=== PATIENT | female | born 1970 | race Caucasian/White ===

== ENCOUNTER 2019-08-16 19:01 | Emergency (ER) | payer SELFPAY ==
[~2019-08-16] VITALS: Ht 160 cm; Wt 84.9 kg
--- NOTE | 2019-08-16 19:29 | ED General ---
General Chief Complaint: Allergic Reaction Stated Complaint: ALLERGIC REACTION Nursing Triage Note: PT. REPORTED SHE CAME OUT OF THE [facility]EDRO AND HAD HIVES AROUND 1730. SHE DID TAKE A SHOWER. SHE TOOK 2 BENADRYL AT 1730. PT. DOES C/O BEING SOB, HAVING HIVES, ITCHING, AND THROAT TIGHTENING. Nursing Sepsis Screen: No Definite Risk Source of Information: Patient History of Present Illness Date Seen by Provider: Aug 16, 2019 Time Seen by Provider: 19:15 Initial Comments Patient is a 49-year-old female with history of asthma, severe perfume allergies presents with acute onset shortness of breath, wheezing, and diffuse urticaria starting 30 minutes prior to ED arrival. Patient states symptoms began after she had finished working outdoors and was preparing to take a shower. Denies known allergen exposure. Patient used albuterol inhaler and took 50 mg of Benadryl prior to coming to the emergency department. Reports sensation of tongue swelling and a band around her lower neck. Patient with audible dyspnea then and able to speak in complete sentences. Patient arrives by private vehicle. Timing/Duration: 4-6 Hours Severity: Severe Modifying Factors: improves with Medication Associated Systoms: Chest Pain, Shortness of Air Allergies and Home Medications Allergies Coded Allergies: butorphanol (Verified Allergy, Unknown, 08/16/19) cyclobenzaprine (Verified Allergy, Unknown, 08/16/19) levofloxacin (Verified Allergy, Unknown, 08/16/19) meperidine (Verified Allergy, Unknown, 08/16/19) metoclopramide (Verified Allergy, Unknown, 08/16/19) morphine (Verified Allergy, Unknown, 08/16/19) prasugrel (Verified Allergy, Unknown, 08/16/19) tramadol (Verified Allergy, Unknown, 08/16/19) Patient Home Medication List Home Medication List Reviewed: Yes Review of Systems Review of Systems Constitutional: see HPI EENTM: see HPI Cardiovascular: see HPI Gastrointestinal: see HPI Genitourinary: see HPI Musculoskeletal: see HPI Skin: see HPI Psychiatric/Neurological: See HPI Hematologic/Lymphatic: See HPI All Other Systems Reviewed Negative Unless Noted: Yes Past Potcmeg-Vztkzb-Qwhjce Hx Past Med/Social Hx: Reviewed Nursing Past Med/Soc Hx Patient Social History Recent Foreign Travel: No Contact w/Someone Who Travel: No Recent Infectious Disease Expo: No Physical Exam Vital Signs Vital Signs - First Documented 08/16/19 19:02 Temp 36.1 Pulse 26 B/P (MAP) 132/100 (111) Pulse Ox 98 O2 Delivery Room Air Capillary Refill : Less Than 3 Seconds Height, Weight, BMI Height: '" Weight: lbs. oz. kg; 33.00 BMI Method: General Appearance: Moderate Distress (respiratory distress) Eyes: Bilateral Eye Normal Inspection, Bilateral Eye PERRL, Bilateral Eye EOMI HEENT: PERRL/EOMI, Normal ENT Inspection, Other (no appreciated oral or posterior oral pharyngeal swelling) Neck: Full Range of Motion, Non Tender, Supple Respiratory: Accessory Muscle Use (tachypnea, diminished coarse breath sounds bilaterally, speaks in 5-7 word sentences), Decreased Breath Sounds, Respiratory Distress, Wheezing, Other Gastrointestinal: Soft Back: Normal Inspection Extremity: Normal Capillary Refill Neurologic/Psychiatric: Oriented x3 Skin: Other (diffuse urticaria over extremities and torso.) Focused Exam Sepsis Stage: Ruled Out Progress/Results/Core Measures Suspected Sepsis Recent Fever Within 48 Hours: No Infection Criteria Present: None New/Unexplained Altered Menta: No Sepsis Screen: No Definite Risk SIRS Temperature: Pulse: 26 Respiratory Rate: Blood Pressure 132 /100 Mean: 111 Results/Orders My Orders Orders - SHASHANK MTZ Epinephrine (Racemic Epinephrine 2.25 (08/16/19 19:30) Methylprednisolone Sod Succ (Solu-Medrol (08/16/19 19:30) Famotidine Injection (Pepcid Injection) (08/16/19 19:30) Svn Small Volume Nebulizer (08/16/19 19:19) Medications Given in ED Current Medications Medications Dose Ordered Sig/Edy Route Start Time Stop Time Status Last Admin Dose Admin Epinephrine 0.5 ml ONCE ONCE INH 08/16/19 19:30 08/16/19 19:31 DC 08/16/19 19:27 0.5 ML Famotidine 40 mg ONCE ONCE IVP 08/16/19 19:30 08/16/19 19:31 DC 08/16/19 19:27 40 MG Methylprednisolone Sodium Succinate 125 mg ONCE ONCE IVP 08/16/19 19:30 08/16/19 19:31 DC 08/16/19 19:27 125 MG Vital Signs/I&O 08/16/19 19:02 Temp 36.1 Pulse 26 B/P (MAP) 132/100 (111) Pulse Ox 98 O2 Delivery Room Air Capillary Refill : Less Than 3 Seconds Blood Pressure Mean: 111 Departure Communication (Admissions) Patient with allergic reaction with respiratory symptoms 2 to unknown exposure. Steroids and antihistamines and nebulized racemic epinephrine given with significant improvement/resolution of symptoms in the emergency department. No oral pharyngeal swelling, urticaria or chest tightness on reevaluation. Recommendations are continued supportive care, close monitoring and PCP follow- up. Return precautions reviewed. Impression Primary Impression: Urticaria Additional Impression: Allergic reaction Disposition: HOME, SELF-CARE Condition: Improved Departure-Patient Inst. Referrals: NO,LOCAL PHYSICIAN (PCP) Primary Care Physician Patient Instructions: Hives, Anaphylaxis (DC) Add. Discharge Instructions: Please take medications as directed. Use home albuterol inhaler and Benadryl as needed for additional relief. Follow-up with your PCP for reevaluation if symptoms persist. Return to the ED if symptoms worsen or return. All discharge instructions reviewed with patient and/or family. Voiced understanding. Scripts Famotidine (Pepcid) 20 Mg Tablet 20 MG PO BID, #30 TAB Prov: SHASHANK MTZ DO 08/16/19 Prednisone (Prednisone) 20 Mg Tab 40 MG PO DAILY, #6 TAB 0 Refills Prov: SHASHANK MTZ DO 08/16/19 SHASHANK MTZ DO Aug 16, 2019 19:29
[2019-08-16] MEDS ORDERED: RT-epiNEPHrine (RACEMIC) 2.25% 0.5 ML VIAL INH ONE (19:30)
[2019-08-16] MEDS ORDERED: methylPREDNISolone 125 MG (Solu-MEDROL) VIAL IVP ONE (19:30)
[2019-08-16] MEDS ORDERED: FAMOTIDINE 20MG/2ML IV (PEPCID) IVP ONE (19:30)
[2019-08-16] MEDS ORDERED: FAMO-119 PO (20:02)
[2019-08-16] MEDS ORDERED: PRD20T PO (20:02)
[2019-08-16 20:04] VITALS: BP 91/67
== END 2019-08-16 20:06 | disposition home or self-care (01) ==
LOC: ER FS 19:02
DX: L50.9 Urticaria, unspecified (principal); T78.40XA Allergy, unspecified, initial encounter; J45.909 Unspecified asthma, uncomplicated; Z88.1 Allergy status to other antibiotic agents; Z88.5 Allergy status to narcotic agent; Z88.8 Allergy status to other drugs, medicaments and biological substances

== ENCOUNTER 2019-09-16 18:27 | Emergency (ER) | payer SELFPAY ==
[~2019-09-16] VITALS: Ht 160 cm; Wt 84.8 kg
[~2019-09-16 18:27] MED LIST: FAMO-119 PO; PRD20T PO
[2019-09-16] MEDS ORDERED: methylPREDNISolone 125 MG (Solu-MEDROL) VIAL IV STA (18:43)
[2019-09-16] MEDS ORDERED: NS IV 1000 ML 1,000 ML IV STA (18:43)
[2019-09-16] MEDS ORDERED: FAMOTIDINE 20MG/2ML IV (PEPCID) IV STA (18:43)
--- NOTE | 2019-09-16 18:57 | ED General ---
General Chief Complaint: Allergic Reaction Stated Complaint: ALLERGIC REACTION Nursing Triage Note: PT HAS UNKNOWN ALLERGIES AND SHE REPORTS HIVES AFTER BEING OUTSIDE AND HER HANDS FELT LIKE THEY WERE SWELLING AND HER THROAT FELT WEIRD. 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 Nursing Sepsis Screen: No Definite Risk Source of Information: Patient Exam Limitations: No Limitations History of Present Illness Date Seen by Provider: Sep 16, 2019 Time Seen by Provider: 18:38 Initial Comments Here with report of severe allergic reaction. She is apparently standing outside in the past year when she started feeling hives on her legs and hands associated with itching. She went inside and took 50 mg of Benadryl. She waited 10 minutes and that was not helping so she did an EpiPen. She had progression of symptoms and about 15 minutes later she felt like her lips and throat itching. She went ahead and took another EpiPen at that time. First EpiPen was about 5:45 PM with the second EpiPen around 6 PM. Ultimately she presented to the ER afterwards and is feeling quite shaky. Hives have resolved and she has no breathing problems. She came to the ER due to her primary doctor instructions to come if she has to use her EpiPen. Denies current nausea, vomiting, abdominal pain, breathing problems or weakness. She is jittery. Timing/Duration: 1 Hour, Changing Over Time Severity: Moderate, Severe Associated Systoms: No Chest Pain, No Fever/Chills, No Nausea/Vomiting, No Shortness of Air, No Weakness Allergies and Home Medications Allergies Coded Allergies: butorphanol (Verified Allergy, Unknown, 08/16/19) cyclobenzaprine (Verified Allergy, Unknown, 08/16/19) levofloxacin (Verified Allergy, Unknown, 08/16/19) meperidine (Verified Allergy, Unknown, 08/16/19) metoclopramide (Verified Allergy, Unknown, 08/16/19) morphine (Verified Allergy, Unknown, 08/16/19) prasugrel (Verified Allergy, Unknown, 08/16/19) tramadol (Verified Allergy, Unknown, 08/16/19) Home Medications Famotidine 20 Mg Tablet, 20 MG PO BID Prescribed by: SHASHANK MTZ on 08/16/192001 Prednisone 20 Mg Tab, 40 MG PO DAILY Prescribed by: SHASHANK MTZ on 08/16/192001 Patient Home Medication List Home Medication List Reviewed: Yes Review of Systems Review of Systems Constitutional: see HPI; No chills, No fever EENTM: see HPI Respiratory: see HPI, short of breath; No stridor, No wheezing Cardiovascular: No chest pain; palpitations Gastrointestinal: No abdominal pain, No nausea, No vomiting Genitourinary: no symptoms reported Musculoskeletal: no symptoms reported Skin: see HPI, lesions, pruritus, rash All Other Systems Reviewed Negative Unless Noted: Yes Past Jvfwrad-Kldmvd-Romfoo Hx Past Med/Social Hx: Reviewed Nursing Past Med/Soc Hx Patient Social History Alcohol Use: Denies Use Recreational Drug Use: No Smoking Status: Never a Smoker 2nd Hand Smoke Exposure: No Recent Foreign Travel: No Contact w/Someone Who Travel: No Recent Infectious Disease Expo: No Recent Hopitalizations: No Physical Abuse: No Sexual Abuse: No Mistreated: No Fear: No Seasonal Allergies Seasonal Allergies: Yes Past Medical History Surgeries: Yes Coronary Stent, Gallbladder, Hysterectomy Respiratory: Yes Asthma Cardiac: Yes Coronary Artery Disease Neurological: Yes 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 oz. kg; 33.00 BMI Method: General Appearance: No Apparent Distress, WD/WN HEENT: PERRL/EOMI, Pharynx Normal Neck: Non Tender, Supple Respiratory: Lungs Clear, Normal Breath Sounds Cardiovascular: No Murmur, Tachycardia Gastrointestinal: Non Tender, Soft Back: Normal Inspection, No CVA Tenderness, No Vertebral Tenderness Extremity: Normal Range of Motion, Non Tender Neurologic/Psychiatric: Alert, Oriented x3 Skin: Normal Color, Warm/Dry, Other (hives have resolved) Progress/Results/Core Measures Suspected Sepsis Recent Fever Within 48 Hours: No Infection Criteria Present: None New/Unexplained Altered Menta: No Sepsis Screen: No Definite Risk SIRS Temperature: Pulse: 105 Respiratory Rate: 18 Blood Pressure 162 /84 Mean: 110 Results/Orders My Orders Orders - JONNATHAN NOVAK MD Methylprednisolone Sod Succ (Solu-Medrol (09/16/19 18:43) Ns Iv 1000 Ml (Sodium Chloride 0.9%) (09/16/19 18:43) Famotidine Injection (Pepcid Injection) (09/16/19 18:43) Ed Iv/Invasive Line Start (09/16/19 18:43) Vital Signs/I&O 09/16/19 18:30 Temp 36.7 Pulse 105 Resp 18 B/P (MAP) 162/84 (110) Pulse Ox 98 O2 Delivery Room Air Capillary Refill : Less Than 3 Seconds Blood Pressure Mean: 110 POS Progress Note : Progress Note Seen and evaluated. Patient placed on monitor. IV, normal saline 1 L bolus, Pepcid 20 mg IV and Solu-Medrol 125 mg IV ordered. We will need to monitor patient through the epinephrine dosing timeframe. We will likely monitor tell about 10 PM. She remains resolved at this time. Monitor patient. 1933: Patient doing better and heart rate has decreased to 90s. Monitor patient. 2029: Remains improved. Monitor patient. 2121: Heart rate in the 80s. Jitteriness gone. No return of symptoms. Discharged home with return precautions. Patient verbalize understanding instructions and agreement with plan. We will continue prednisone for the next 4 days. She will product picker her EpiPen prescriptions at the clinic tomorrow. Departure Impression Primary Impression: Anaphylaxis Qualified Codes: T78.2XXA - Anaphylactic shock, unspecified, initial encounter Disposition: 01 HOME, SELF-CARE Condition: Improved Departure-Patient Inst. Decision time for Depature: 21:24 Referrals: NO,LOCAL PHYSICIAN (PCP) Primary Care Physician Patient Instructions: Anaphylaxis (DC) Add. Discharge Instructions: All discharge instructions reviewed with patient and/or family. Voiced understanding. You may take [id number] famotidine (Pepcid) 20 mg tablet twice daily for the next 4 days and then as needed. If you ever having onset of allergic or action, take one of the famotidine tablets and 50 mg of Benadryl (diphenhydramine). Carrier this with you at all times. You may continue Benadryl/diphenhydramine 25-50 mg every 6 hours as needed for hives or itching. Only take this if needed. Take other medication as prescribed. Get your prescription for your EpiPen filled tomorrow at the clinic. Return for worse pain, fever, vomiting, weakness, breathing problems, return of symptoms or other concerns as needed. Scripts Prednisone (Prednisone) 20 Mg Tab 40 MG PO DAILY, #8 TAB 0 Refills Prov: JONNATHAN NOVAK MD 09/16/19 JONNATHAN NOVAK MD Sep 16, 2019 18:57 POS
[2019-09-16] MEDS ORDERED: PRD20T PO (21:25)
[2019-09-16 21:34] VITALS: BP 135/76
== END 2019-09-16 21:34 | disposition home or self-care (01) ==
LOC: EDUNIT# 18:27 → ER FS 18:28
DX: T78.2XXA Anaphylactic shock, unspecified, initial encounter (principal); J45.909 Unspecified asthma, uncomplicated; I25.10 Atherosclerotic heart disease of native coronary artery without angina pectoris; G40.909 Epilepsy, unspecified, not intractable, without status epilepticus; Z88.5 Allergy status to narcotic agent; Z88.1 Allergy status to other antibiotic agents; Z88.8 Allergy status to other drugs, medicaments and biological substances; Z95.5 Presence of coronary angioplasty implant and graft; Z90.710 Acquired absence of both cervix and uterus

== ENCOUNTER 2020-01-03 16:47 | Emergency (ER) | payer MEDICAID, OTHER ==
[~2020-01-03] VITALS: Ht 160 cm; Wt 84.3 kg
[2020-01-03] MEDS ORDERED: ASPIRIN 81 MG CHEW (CHILDREN'S ASA) PO ONE (17:00)
--- NOTE | 2020-01-03 17:02 | ED Chest Pain ---
General Chief Complaint: Chest Pain Stated Complaint: CHEST PAINS Source: patient Exam Limitations: no limitations (LICO CAMPA DO) History of Present Illness Date Seen by Provider: Jan 03, 2020 Time Seen by Provider: 16:52 Initial Comments The patient is a pleasant 49-year-old obese female who presents for evaluation of pain between her shoulder blades which started 1 hours ago. She states that she was getting ready to make dinner and not exerting herself at all. She took some nitroglycerin which helped but did not completely resolve her pain. She states that this is typically where she has pain when she is having a cardiac problem. She has not taken any aspirin today because she normally takes aspirin at night. She has 3 coronary artery stents in her LAD which was performed at [facility]. She states that if admitted she would like to be transferred to [place]. She is also having some indigestion and nausea. She is alert and oriented 4, calm, and appears to be in no distress this time. Timing/Duration: 1 hour Severity/Quality: moderate Location: back (between shoulder blades) Radiation: no radiation Activities at Onset: none Prior CP/Workup: cardiac cath, heart attack ASA po TELLER VAULT: No NTG SL TELLER VAULT: Yes Associated Symptoms: heartburn, nausea/vomiting (LICO CAMPA DO) Allergies and Home Medications Allergies Coded Allergies: butorphanol (Verified Allergy, Unknown, 08/16/19) cyclobenzaprine (Verified Allergy, Unknown, 08/16/19) levofloxacin (Verified Allergy, Unknown, 08/16/19) meperidine (Verified Allergy, Unknown, 08/16/19) metoclopramide (Verified Allergy, Unknown, 08/16/19) morphine (Verified Allergy, Unknown, 08/16/19) prasugrel (Verified Allergy, Unknown, 08/16/19) tramadol (Verified Allergy, Unknown, 08/16/19) Home Medications Famotidine 20 Mg Tablet, 20 MG PO BID Prescribed by: SHASHANK SEXTON on 08/16/192001 Prednisone 20 Mg Tab, 40 MG PO DAILY Prescribed by: SHASHANK SEXTON on 08/16/192001 Prednisone 20 Mg Tab, 40 MG PO DAILY Prescribed by: JONNATHAN NOVAK on 09/16/19 3364 Patient Home Medication List Home Medication List Reviewed: Yes (LICO CAMPA DO) Review of Systems Review of Systems Constitutional: no symptoms reported EENTM: No Symptoms Reported Respiratory: No Symptoms Reported Cardiovascular: No Symptoms Reported Gastrointestinal: Nausea Genitourinary: No Symptoms Reported Musculoskeletal: other (pain between shoulder blades) Skin: no symptoms reported Psychiatric/Neurological: No Symptoms Reported Endocrine: No Symptoms Reported Hematologic/Lymphatic: No Symptoms Reported (LICO CAMPA DO) All Other Systems Reviewed Negative Unless Noted: Yes (LICO CAMPA DO) Past Tegecfh-Dofmda-Nlcxlr Hx Past Med/Social Hx: Reviewed Nursing Past Med/Soc Hx (LICO CAMPA DO) Patient Social History 2nd Hand Smoke Exposure: No Recent Foreign Travel: No Contact w/Someone Who Travel: No Recent Hopitalizations: No (LICO CAMPA DO) Seasonal Allergies Seasonal Allergies: Yes (LICO CAMPA DO) Past Medical History Surgeries: Yes Coronary Stent, Gallbladder, Hysterectomy Respiratory: Yes Asthma Cardiac: Yes Coronary Artery Disease 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 oz. kg; 33.00 BMI Method: General Appearance: No Apparent Distress, WD/WN, Obese HEENT: PERRL/EOMI, Pharynx Normal Neck: Full Range of Motion, Non Tender, Supple Respiratory: Chest Non Tender, Lungs Clear, Normal Breath Sounds, No Accessory Muscle Use, No Respiratory Distress Cardiovascular: Regular Rate, Rhythm, No Edema, No Murmur, Normal Peripheral Pulses Gastrointestinal: Normal Bowel Sounds, No Pulsatile Mass, Non Tender, Soft Extremity: Normal Capillary Refill, Normal Inspection, Non Tender Neurologic/Psychiatric: Alert, Oriented x3, No Motor/Sensory Deficits, Normal Mood/Affect Skin: Normal Color, Warm/Dry (LICO CAMPA DO) Progress/Results/Core Measures Results/Orders Lab Results Laboratory Tests Test 01/03/20 16:55 Range/Units White Blood Count 7.6 4.3-11.0 10^3/uL Red Blood Count 5.23 4.35-5.85 10^6/uL Hemoglobin 15.1 11.5-16.0 G/DL Hematocrit 44 35-52 % Mean Corpuscular Volume 84 80-99 FL Mean Corpuscular Hemoglobin 29 25-34 PG Mean Corpuscular Hemoglobin Concent 35 32-36 G/DL Red Cell Distribution Width 12.5 10.0-14.5 % Platelet Count 192 130-400 10^3/uL Mean Platelet Volume 9.1 7.4-10.4 FL Neutrophils (%) (Auto) 59 42-75 % Lymphocytes (%) (Auto) 29 12-44 % Monocytes (%) (Auto) 7 0-12 % Eosinophils (%) (Auto) 4 0-10 % Basophils (%) (Auto) 0 0-10 % Neutrophils # (Auto) 4.5 1.8-7.8 X 10^3 Lymphocytes # (Auto) 2.2 1.0-4.0 X 10^3 Monocytes # (Auto) 0.5 0.0-1.0 X 10^3 Eosinophils # (Auto) 0.3 0.0-0.3 10^3/uL Basophils # (Auto) 0.0 0.0-0.1 10^3/uL D-Dimer 0.59 H 0.00-0.49 UG/ML Sodium Level 139 135-145 MMOL/L Potassium Level 3.5 L 3.6-5.0 MMOL/L Chloride Level 99 98-107 MMOL/L Carbon Dioxide Level 24 21-32 MMOL/L Anion Gap 16 H 5-14 MMOL/L Blood Urea Nitrogen 18 7-18 MG/DL Creatinine 0.76 0.60-1.30 MG/DL Estimat Glomerular Filtration Rate > 60 BUN/Creatinine Ratio 24 Glucose Level 145 H 70-105 MG/DL Calcium Level 9.4 8.5-10.1 MG/DL Corrected Calcium 8.5-10.1 MG/DL Total Bilirubin 0.3 0.1-1.0 MG/DL Aspartate Amino Transf (AST/SGOT) 16 5-34 U/L Alanine Aminotransferase (ALT/SGPT) 24 0-55 U/L Alkaline Phosphatase 174 H 40-136 U/L Troponin I < 0.30 <0.30 NG/ML Pro-B-Type Natriuretic Peptide 10.6 <75.0 PG/ML Total Protein 7.6 6.4-8.2 GM/DL Albumin 4.8 H 3.2-4.5 GM/DL (SHASHANK SEXTON DO) My Orders Orders - SHASHANK SEXTON DO Ketorolac Injection (Toradol Injection) (01/03/20 18:15) Prochlorperazine Injection (Compazine In (01/03/20 18:30) Ct Angio Chest W (01/03/20 18:49) Iohexol Injection (Omnipaque 350 Mg/Ml 1 (01/03/20 19:00) Received Contrast (Hold Metformin- Contr (01/03/20 19:00) Sodium Chloride Flush (Catheter Flush Sy (01/03/20 19:00) Ns (Ivpb) (Sodium Chloride 0.9% Ivpb Bag (01/03/20 19:00) Heparin Drip 22927 Unit/500ml (Heparin (01/03/20 19:25) Heparin (Bolus Per Protocol) (Heparin (B (01/03/20 19:25) (SHASHANK SEXTON DO) Medications Given in ED Current Medications Medications Dose Ordered Sig/Edy Route Start Time Stop Time Status Last Admin Dose Admin Al Hydrox/Mg Hydrox/Simethicone 30 ml ONCE ONCE PO 01/03/20 17:30 01/03/20 17:31 DC 01/03/20 17:22 30 ML Aspirin 324 mg ONCE ONCE PO 01/03/20 17:00 01/03/20 17:01 DC 01/03/20 17:03 324 MG Fentanyl Citrate 50 mcg ONCE ONCE IVP 01/03/20 17:45 01/03/20 17:46 DC 01/03/20 17:41 50 MCG Iohexol 125 ml ONCE ONCE IV 01/03/20 19:00 01/03/20 19:01 DC 01/03/20 19:08 125 ML Ketorolac Tromethamine 30 mg ONCE ONCE IVP 01/03/20 18:15 01/03/20 18:16 DC 01/03/20 18:24 30 MG Lidocaine HCl 15 ml ONCE ONCE PO 01/03/20 17:30 01/03/20 17:31 DC 01/03/20 17:22 15 ML Ondansetron HCl 4 mg ONCE ONCE IVP 01/03/20 17:30 01/03/20 17:31 DC 01/03/20 17:23 4 MG Prochlorperazine Edisylate 10 mg ONCE ONCE IV 01/03/20 18:30 01/03/20 18:31 DC 01/03/20 18:46 10 MG Sodium Chloride 10 ml NEEDED PRN IV 01/03/20 19:00 01/03/20 19:08 10 ML Sodium Chloride 100 ml ONCE ONCE IV 01/03/20 19:00 01/03/20 19:01 DC 01/03/20 19:08 80 ML (SHASHANK SEXTON DO) Vital Signs/I&O 01/03/20 16:51 Temp 36.0 Pulse 76 Resp 17 B/P (MAP) 131/72 (91) Pulse Ox 98 (SHASHANK SEXTON DO) Progress Progress Note : Progress Note @1800 - Patient care transferred to Dr. Shashank Sexton at this time while waiting on the d-dimer result. If the patient is admitted she prefers [facility]. (LICO CAMPA DO) Comment @1650 - Normal sinus rhythm, rate of 73, normal axis, no acute ischemic findings noted, no STEMI, reviewed and interpreted by myself (LICO CAMPA DO) Departure Communication (Admissions) History and physical repeated by this provider. Labs EKG and imaging studies reviewed. Atypical chest pain with concern for possible acute coronary syndrome. Patient requests transfer to [facility]. Dr. Arnold director of special education for cardiology excepts for Dr. Chavez. Aspirin nitroglycerin given earlier in ED visit. Heparin drip initiated per Dr. Vallecillo's request. Patient stable throughout ED stay. (SHASHANK SEXTON DO) Impression Primary Impression: Chest pain Disposition: XF SHT-TRM HOSP Condition: Stable Transfer Transfer Reason: Exceeds level of care Time Spoke to Accepting Phy: 19:32 (Dr. Arnold) Method of Transfer: EMS (SHASHANK SEXTON DO) Departure-Patient Inst. Decision time for Depature: 19:32 (SHASHANK SEXTON DO) Referrals: NO,LOCAL PHYSICIAN (PCP) Primary Care Physician Patient Instructions: Chest Pain That Is Not Caused by the Heart (DC) LICO CAMPA DO Jan 03, 2020 17:02 SHASHANK SEXTON DO Jan 03, 2020 19:32
[2020-01-03 17:05] LABS: BASOPHILS % (AUTO) 0 % (0-10); EOSINOPHILS % (AUTO) 4 % (0-10); HEMATOCRIT 44 % (35-52); HEMOGLOBIN 15.1 G/DL (11.5-16.0); LYMPHOCYTES % (AUTO) 29 % (12-44); MEAN CORPUSCULAR HEMOGLOBIN 29 PG (25-34); MEAN CORPUSCULAR HGB CONC 35 G/DL (32-36); MEAN CORPUSCULAR VOLUME 84 FL (80-99); MEAN PLATELET VOLUME 9.1 FL (7.4-10.4); MONOCYTES % (AUTO) 7 % (0-12); NEUTROPHILS # (AUTO) 4.5 X 10^3 (1.8-7.8); NEUTROPHILS % (AUTO) 59 % (42-75); PLATELET COUNT 192 10^3/uL (130-400); RED CELL DISTRIBUTION WIDTH 12.5 % (10.0-14.5); WHITE BLOOD COUNT 7.6 10^3/uL (4.3-11.0)
[2020-01-03 17:06] LABS: EOSINOPHILS # (AUTO) 0.3 10^3/uL (0.0-0.3); LYMPHOCYTES # (AUTO) 2.2 X 10^3 (1.0-4.0); MONOCYTES # (AUTO) 0.5 X 10^3 (0.0-1.0)
--- NOTE | 2020-01-03 17:06 | Diagnostic Imaging Report ---
INDICATION: Chest pain between the shoulder blades. FINDINGS: Frontal view of the chest demonstrates the lungs to be clear. The heart, mediastinum, pulmonary vascularity, and the visualized bony thorax are normal. IMPRESSION: Negative chest. Dictated by: Dictated on workstation # [id number]
[2020-01-03] MEDS ORDERED: LIDOCAINE 2% VISCOUS 15 ML UDC ONE (17:11)
[2020-01-03] MEDS ORDERED: ANTACID SUSP 30 ML UDC (MYLANTA) ONE (17:12)
[2020-01-03] MEDS ORDERED: ONDANSETRON 4 MG/2 ML (SDV) Z0FRAN IVP ONE (17:30)
[2020-01-03] MEDS ORDERED: LIDOCAINE 2% VISCOUS 15 ML UDC PO ONE ×2 (17:30)
[2020-01-03] MEDS ORDERED: ANTACID SUSP 30 ML UDC (MYLANTA) PO ONE ×2 (17:30)
[2020-01-03 17:32] LABS: BILIRUBIN,TOTAL 0.3 MG/DL (0.1-1.0); BUN/CREATININE RATIO 24; CALCIUM 9.4 MG/DL (8.5-10.1); CARBON DIOXIDE 24 MMOL/L (21-32); CHLORIDE 99 MMOL/L (98-107); CREATININE SERUM 0.76 MG/DL (0.60-1.30); GFR ESTIMATED > 60; GLUCOSE 145 MG/DL (70-105); POTASSIUM 3.5 MMOL/L (3.6-5.0); SODIUM 139 MMOL/L (135-145)
[2020-01-03 17:33] LABS: ALANINE AMINOTRANSFERASE 24 U/L (0-55); ALBUMIN 4.8 GM/DL (3.2-4.5); ALKALINE PHOSPHATASE 174 U/L (40-136); TOTAL PROTEIN 7.6 GM/DL (6.4-8.2)
[2020-01-03] MEDS ORDERED: fentaNYL INJECTION 100 MCG/2 ML AMP IVP ONE (17:45)
[2020-01-03] MEDS ORDERED: KETOROLAC 30 MG/ML VIAL IVP ONE (18:15)
[2020-01-03] MEDS ORDERED: PROCHLORPERAZINE 10 MG/2ML INJ (COMPAZINE) IV ONE (18:30)
[2020-01-03] MEDS ORDERED: IOHEXOL 350 MG/ML 150 ML (OMNIPAQUE 350) VIAL IV ONE (19:00)
[2020-01-03] MEDS ORDERED: HOLD METFORMIN - RECEIVED CONTRAST 20 ML VIAL IV SCH (19:00)
[2020-01-03] MEDS ORDERED: NS 100 ML (IVPB) BAG IV ONE (19:00)
[2020-01-03] MEDS ORDERED: CATHETER FLUSH 10 ML SYR IV PRN (19:00)
[2020-01-03] MEDS ORDERED: HEParin 1000 UNIT/ML (10ML VIAL) FOR BOLUS IV ONE (19:25)
[2020-01-03] MEDS ORDERED: HEParin DRIP 25000 UNIT/500ML 500 ML IV ONE (19:25)
--- NOTE | 2020-01-03 19:30 | Diagnostic Imaging Report ---
PROCEDURE: CT angiography of the chest with contrast. TECHNIQUE: Multiple contiguous axial images were obtained through the chest after uneventful bolus administration of intravenous contrast. 3D reconstructed CTA MIP acquisitions were also performed. Auto Exposure Controls were utilized during the CT exam to meet ALARA standards for radiation dose reduction. DATE: January 03, 2020. COMPARISON: Chest radiograph January 03, 2020. INDICATION: 49-year-old female, chest pain. FINDINGS: There is a 3 mm noncalcified left upper lobe pulmonary nodule on axial image 40. There is no additional identified pulmonary nodule. There is no lung mass. There is mosaic lung attenuation which potentially could reflect small airways disease and air trapping. A chronic vascular etiology is also considered. There is no identified alveolar consolidation. There is no pneumothorax. There is no pleural effusion. The central airways are patent. There is no identified pulmonary embolus. The main pulmonary artery is normal in caliber. The heart is not enlarged. There is no pericardial effusion. There is no identified abnormally enlarged mediastinal, hilar, or axillary lymph node which meets CT size criteria for adenopathy. The patient is status post cholecystectomy. There are degenerative changes of the spine. There is no identified acute bony abnormality. IMPRESSION: CT CHEST. 1. Mosaic lung attenuation which may reflect small airways disease and air trapping and/or chronic vascular etiology. 2. No identified acute cardiopulmonary abnormality. Dictated by: Dictated on workstation # [id number]
[2020-01-03 20:01] VITALS: BP 124/59
[2020-01-03 20:08] LABS: PROTHROMBIN TIME PATIENT 13.9 SEC (12.2-14.7)
--- OUTSIDE RECORDS SUMMARY | 2020-01-06 03:39 | XMS REPORT | Continuity of Care Document ---
Author Organization Unknown Address Unknown Phone Unavailable Allergies Active Description Code Type Severity Reaction Onset Reported/Identified Relationship to Patient Clinical Status Yes butorphanol [id number] Drug Aller gy Unknown N/A 08/16/2019 Yes cyclobenzaprine [id number] D rug Allergy Unknown N/A 08/16/2019 Yes levofloxacin [id number] Drug Allergy Unknown N/A 08/16/2019 Yes meperidine [id number] Drug Allerg y Unknown N/A 08/16/[id number] ug Allergy Unknown N/A 08/16/2019 Yes morphine [id number] Drug Allergy Unknown N/A 08/16/2019 Yes prasugrel [id number] Drug Allergy Unknown N/A 08/16/2019 Yes tramadol [id number] Drug Allergy Unknown N/A 08/16/2019 Medications There is no data. Problems Date Dx Coded Attending Type Code Diagnosis Diagnosed By 08/16/2019 SHASHANK MTZ DO, Ot J45.909 UNSPECIFIED ASTHMA, UNCOMPLICATED 08/16/2019 SHASHANK MTZ DO, Ot L50.9 URTICARIA, UNSPECIFIED 08/16/2019 SHASHANK MTZ DO, Ot T78.40XA ALLERGY, UNSPECIFIED, INITIAL ENCOUNTER 08/16/2019 SHASHANK MTZ DO, Ot Z88.1 ALLERGY STATUS TO OTHER ANTIBIOTIC AGENT 08/16/2019 SHASHANK MTZ DO, Ot Z88.5 ALLERGY STATUS TO NARCOTIC AGENT STATUS 08/16/2019 SHASHANK MTZ DO, Ot Z88.8 ALLERGY STATUS TO OTH DRUG/MEDS/BIOL SUB 08/19/2019 SHASHANK MTZ DO, Ot J45.909 UNSPECIFIED ASTHMA, UNCOMPLICATED 08/19/2019 SHASHANK MTZ DO, Ot L50.9 URTICARIA, UNSPECIFIED 08/19/2019 SHASHANK MTZ DO, Ot T78.40XA ALLERGY, UNSPECIFIED, INITIAL ENCOUNTER 08/19/2019 SHASHANK MTZ DO, Ot Z88.1 ALLERGY STATUS TO OTHER ANTIBIOTIC AGENT 08/19/2019 SHASHANK MTZ DO, Ot Z88.5 ALLERGY STATUS TO NARCOTIC AGENT STATUS 08/19/2019 SHASHANK MTZ DO Ot Z88.8 ALLERGY STATUS TO OTH DRUG/MEDS/BIOL SUB 09/16/2019 JONNATHAN NOVAK MD Ot G40.909 EPILEPSY, UNSP, NOT INTRACTABLE, WITHOUT 09/16/2019 JONNATHAN NOVAK MD Ot I25.10 ATHSCL HEART DISEASE OF [place] CORONARY 09/16/2019 JONNATHAN NOVAK MD Ot J45.909 UNSPECIFIED ASTHMA, UNCOMPLICATED 09/16/2019 JONNATHAN NOVAK MD Ot T78.2XXA ANAPHYLACTIC SHOCK, UNSPECIFIED, INITIAL 09/16/2019 JONNATHAN NOVAK MD Ot Z88.1 ALLERGY STATUS TO OTHER ANTIBIOTIC AGENT 09/16/2019 JONNATHAN NOVAK MD Ot Z88.5 ALLERGY STATUS TO NARCOTIC AGENT STATUS 09/16/2019 JONNATHAN NOVAK MD Ot Z88.8 ALLERGY STATUS TO OTH DRUG/MEDS/BIOL SUB 09/16/2019 JONNATHAN NOVAK MD Ot Z90.710 ACQUIRED ABSENCE OF BOTH CERVIX AND UTER 09/16/2019 JONNATHAN NOVAK MD Ot Z95.5 PRESENCE OF CORONARY ANGIOPLASTY IMPLANT 09/20/2019 JONNATHAN NOVAK MD Ot G40.909 EPILEPSY, UNSP, NOT INTRACTABLE, WITHOUT 09/20/2019 JONNATHAN NOVAK MD Ot I25.10 ATHSCL HEART DISEASE OF [place] CORONARY 09/20/2019 JONNATHAN NOVAK MD Ot J45.909 UNSPECIFIED ASTHMA, UNCOMPLICATED 09/20/2019 JONNATHAN NOVAK MD Ot T78.2XXA ANAPHYLACTIC SHOCK, UNSPECIFIED, INITIAL 09/20/2019 JONNATHAN NOVAK MD Ot Z88.1 ALLERGY STATUS TO OTHER ANTIBIOTIC AGENT 09/20/2019 JONNATHAN NOVAK MD Ot Z88.5 ALLERGY STATUS TO NARCOTIC AGENT STATUS 09/20/2019 JONNATHAN NOVAK MD Ot Z88.8 ALLERGY STATUS TO OTH DRUG/MEDS/BIOL SUB 09/20/2019 JONNATHAN NOVAK MD Ot Z90.710 ACQUIRED ABSENCE OF BOTH CERVIX AND UTER 09/20/2019 JONNATHAN NOVAK MD Ot Z95.5 PRESENCE OF CORONARY ANGIOPLASTY IMPLANT 01/06/2020 JONNATHAN NOVAK MD Ot G40.909 EPILEPSY, UNSP, NOT INTRACTABLE, WITHOUT 01/06/2020 JONNATHAN NOVAK MD, Ot I25.10 ATHSCL HEART DISEASE OF [place] CORONARY 01/06/2020 JONNATHAN NOVAK MD, Ot J45.909 UNSPECIFIED ASTHMA, UNCOMPLICATED 01/06/2020 JONNATHAN NOVAK MD, Ot T78.2XXA ANAPHYLACTIC SHOCK, UNSPECIFIED, INITIAL 01/06/2020 JONNATHAN NOVAK MD, Ot Z88.1 ALLERGY STATUS TO OTHER ANTIBIOTIC AGENT 01/06/2020 JONNATHAN NOVAK MD, Ot Z88.5 ALLERGY STATUS TO NARCOTIC AGENT STATUS 01/06/2020 JONNATHAN NOVAK MD, Ot Z88.8 ALLERGY STATUS TO OTH DRUG/MEDS/BIOL SUB 01/06/2020 JONNATHAN NOVAK MD, Ot Z90.710 ACQUIRED ABSENCE OF BOTH CERVIX AND UTER 01/06/2020 JONNATHAN NOVAK MD, Ot Z95.5 PRESENCE OF CORONARY ANGIOPLASTY IMPLANT Procedures There is no data. Results Test Result Range A1C - 04/01/19 10:16 HEMOGLOBIN A1c 5.7 % of total Hgb <5.7 A1C - 07/02/19 08:04 HEMOGLOBIN A1c 5.8 % of total Hgb <5.7 LIPID PANEL - 11/04/19 07:26 CHOLESTEROL, TOTAL 199 mg/dL <200 HDL CHOLESTEROL 46 mg/dL >50 TRIGLYCERIDES 199 mg/dL <150 LDL-CHOLESTEROL 121 mg/dL (calc) NRG CHOL/HDLC RATIO 4.3 (calc) <5.0 NON HDL CHOLESTEROL 153 mg/dL (calc) <13 0 MICROALBUMIN/CREATININE RATIO, URINE - 0 11/04/19 07:26 CREATININE, RANDOM URINE 120 mg/dL 20-27 5 MICROALBUMIN 0.6 mg/dL See Note: MICROALBUMIN/CREATININE RATIO, RANDOM URINE 5 mcg/ mg creat <30 CMP - 11/04/19 07:26 GLUCOSE 139 mg/dL 65-99 UREA NITROGEN (BUN) 15 mg/dL 7-25 CREATININE 0.71 mg/dL 0.50-1.05 eGFR NON-AFR. SAO TOMEAN 99 mL/min/1.73m2 > OR = 60 eGFR 114 mL/min/1.73m2 > OR = 60 BUN/CREATININE RATIO NOT APPLICABLE (calc) 6-22 SODIUM 140 mmol/L 135-146 POTASSIUM 4.2 mmol/L 3.5-5.3 CHLORIDE 105 mmol/L 98-110 CARBON DIOXIDE 23 mmol/L 20-32 CALCIUM 9.4 mg/dL 8.6-10.4 PROTEIN, TOTAL 6.7 g/dL 6.1-8.1 ALBUMIN 4.5 g/dL 3.6-5.1 GLOBULIN 2.2 g/dL (calc) 1.9-3.7 ALBUMIN/GLOBULIN RATIO 2.0 (calc) 1.0-2. 5 BILIRUBIN, TOTAL 0.3 mg/dL 0.2-1.2 ALKALINE PHOSPHATASE 133 U/L 33-130 AST 14 U/L 10-35 ALT 26 U/L 6-29 CBC - 11/04/19 07:26 WHITE BLOOD CELL COUNT 4.6 Thousand/uL 3 .8-10.8 RED BLOOD CELL COUNT 5.17 Million/uL 3.8 0-5.10 HEMOGLOBIN 14.9 g/dL 11.7-15.5 HEMATOCRIT 44.5 % 35.0-45.0 MCV 86.1 fL 80.0-100.0 MCH 28.8 pg 27.0-33.0 MCHC 33.5 g/dL 32.0-36.0 RDW 13.1 % 11.0-15.0 PLATELET COUNT 190 Thousand/uL 140-400 MPV 9.7 fL 7.5-12.5 ABSOLUTE NEUTROPHILS 2240 cells/uL 1500- 7800 ABSOLUTE LYMPHOCYTES 1969 cells/uL 850-3 900 ABSOLUTE MONOCYTES 290 cells/uL 200-950 ABSOLUTE EOSINOPHILS 69 cells/uL 15-500 ABSOLUTE BASOPHILS 32 cells/uL 0-200 NEUTROPHILS 48.7 % NRG LYMPHOCYTES 42.8 % NRG MONOCYTES 6.3 % NRG EOSINOPHILS 1.5 % NRG BASOPHILS 0.7 % NRG DILANTIN - 11/04/19 07:26 PHENYTOIN 5.4 mg/L 10.0-20.0 A1C - 11/04/19 07:26 HEMOGLOBIN A1c 6.2 % of total Hgb <5.7 Complete blood count (CBC) with automate d white blood cell (WBC) differential - 01/03/20 16:55 Blood leukocytes automated count (number/volume) 7.6 10*3/uL 4.3-11.0 Blood erythrocytes automated count (number/volume) 5.23 10*6/uL 4.35-5.85 Venous blood hemoglobin measurement (mass/volume) 15.1 g/dL 11.5-16.0 Blood hematocrit (volume fraction) 44 % 35-52 Automated erythrocyte mean corpuscular volume 84 [ foz_us] 80-99 Automated erythrocyte mean corpuscular h emoglobin (mass per erythrocyte) 29 pg 25-34 Automated erythrocyte mean corpuscular h emoglobin concentration measurement (mass/volume) 35 g/dL 32-36 Automated erythrocyte distribution width ratio 12. 5 % 10.0- 14.5 Automated blood platelet count (count/volume) 192 10*3/uL 130-400 Automated blood platelet mean volume measurement 9.1 [foz_us] 7.4-10.4 Automated blood neutrophils/100 leukocytes 59 % 42-75 Automated blood lymphocytes/100 leukocytes 29 % 12-44 Blood monocytes/100 leukocytes 7 % 0-12 Automated blood eosinophils/100 leukocytes 4 % 0-10 Automated blood basophils/100 leukocytes 0 % 0-10 Blood neutrophils automated count (number/volume) 4.5 10*3 1.8-7.8 Blood lymphocytes automated count (number/volume) 2.2 10*3 1.0-4.0 Blood monocytes automated count (number/volume) 0. 5 10*3 0.0-1.0 Automated eosinophil count 0.3 10*3/uL 0 .0-0.3 Automated blood basophil count (count/volume) 0.0 10*3/uL 0.0-0.1 Comprehensive metabolic panel - 01/03/20 16:55 Serum or plasma sodium measurement (moles/volume) 139 mmol/L 135-145 Serum or plasma potassium measurement (moles/volume) 3.5 mmol/L 3.6-5.0 Serum or plasma chloride measurement (moles/volume) 99 mmol/L 98-107 Carbon dioxide 24 mmol/L 21-32 Serum or plasma anion gap determination (moles/volume) 16 mmol/L 5-14 Serum or plasma urea nitrogen measurement (mass/volume ) 18 mg/dL 7-18 Serum or plasma creatinine measurement (mass/volume) 0.76 mg/dL 0.60-1.30 Serum or plasma urea nitrogen/creatinine mass ratio 24 NRG Serum or plasma creatinine measurement w ith calculation of estimated glomerular filtration rate > NRG Serum or plasma glucose measurement (mass/volume) 145 mg/dL 70-105 Serum or plasma calcium measurement (mass/volume) 9.4 mg/dL 8.5-10.1 Serum or plasma total bilirubin measurement (mass/volu me) 0.3 mg/dL 0.1-1.0 Serum or plasma alkaline phosphatase jojo surement (enzymatic activity/volume) 174 U/L 40-136 Serum or plasma aspartate aminotransfera se measurement (enzymatic activity/volume) 16 U/L 5-34 Serum or plasma alanine aminotransferase measurement (enzymatic activity/volume) 24 U/L 0-55 Serum or plasma protein measurement (mass/volume) 7.6 g/dL 6.4-8.2 Serum or plasma albumin measurement (mass/volume) 4.8 g/dL 3.2-4.5 TROPONIN I FS - 01/03/20 16:55 TROPONIN I FS < 0.30 <0.30 PROBNP FS - 01/03/20 16:55 PROBNP FS 10.6 pg/mL <75.0 Fibrin D-dimer FEU measurement in platel et poor plasma (mass/volume) - 01/03/20 16:55 Fibrin D-dimer FEU measurement in platelet poor plasma (mass/volume) 0.59 ug/mL 0.00-0.49 PT panel in platelet poor plasma by coag ulation assay - 01/03/20 16:55 Prothrombin time (PT) in platelet poor plasma by coagu lation assay 13.9 s 12.2-14.7 INR in platelet poor plasma or blood by coagulation as say 1.0 0.8-1.4 Activated partial thromboplastin time (a PTT) in platelet poor plasma bycoagulation assay - 01/03/20 16:55 Activated partial thromboplastin time (a PTT) in platelet poor plasma bycoagulation assay 24 s 24-35 Encounters ACCT No. Visit Date/Time Discharge Status Pt. Type Provider Facility Loc./Unit Complaint [id number] 11/16/2019 10:00:00 11/16/2019 23:59: 59 [id number] 11/04/2019 07:30:00 Document Registration [id number] 07/02/2019 07:45:00 Document Registration [id number] 04/01/2019 08:30:00 Document Registration [id number] 01/03/2020 16:49:00 020 20:19:00 DIS SHASHANK Reardon DO [facility] ER FS CHEST PAINS [id number] 09/16/2019 18:28:00 019 21:34:00 DIS Outpatient JONNATHAN NOVAK MD [facility] ER FS ALLERGIC REACTI ON [id number] 08/16/2019 19:02:00 019 20:06:00 DIS SHASHANK Reardon DO [facility] ER FS ALLERGIC REACTION
== END 2020-01-03 20:19 | disposition short-term general hospital (02) ==
LOC: EDUNIT# 16:47 → ER FS 16:49
DX: R07.9 Chest pain, unspecified (principal); J45.909 Unspecified asthma, uncomplicated; Z88.8 Allergy status to other drugs, medicaments and biological substances; Z88.1 Allergy status to other antibiotic agents; Z88.5 Allergy status to narcotic agent
CPT/HCPCS: 36415; 71045; 71275; 80053; 83880; 84484; 85025; 85379; 85610; 85730; 93005; 93041

== ENCOUNTER 2021-06-23 10:02 | Emergency (ER) | payer MEDICARE, OTHER ==
[~2021-06-23] VITALS: Ht 160 cm; Wt 86.4 kg
[2021-06-23 10:04] VITALS: BP 132/56
--- NOTE | 2021-06-23 10:07 | ED Integumentary General ---
General Chief Complaint: Laceration Stated Complaint: LEFT EYE LAC History of Present Illness Date Seen by Provider: Jun 23, 2021 Time Seen by Provider: 10:07 Initial Comments 51-year-old female presents with approximate 1 cm laceration in her left eye brow. Patient was out trimming trees when at neighbors slipped out of her hand slipped and hit her above the eye. She has no injury to the eyeball itself. She is on Plavix and want to have it evaluated. She is unsure when her last tetanus was. She had no other injuries. Allergies and Home Medications Allergies Coded Allergies: butorphanol (Verified Allergy, Unknown, 08/16/19) cyclobenzaprine (Verified Allergy, Unknown, 08/16/19) levofloxacin (Verified Allergy, Unknown, 08/16/19) meperidine (Verified Allergy, Unknown, 08/16/19) metoclopramide (Verified Allergy, Unknown, 08/16/19) morphine (Verified Allergy, Unknown, 08/16/19) prasugrel (Verified Allergy, Unknown, 08/16/19) tramadol (Verified Allergy, Unknown, 08/16/19) Home Medications Famotidine 20 Mg Tablet, 20 MG PO BID Prescribed by: SHASHANK MTZ on 08/16/192001 Prednisone 20 Mg Tab, 40 MG PO DAILY Prescribed by: SHASHANK MTZ on 08/16/192001 Prednisone 20 Mg Tab, 40 MG PO DAILY Prescribed by: JONNATHAN NOVAK on 09/16/192124 Patient Home Medication List Home Medication List Reviewed: Yes Review of Systems Review of Systems Constitutional: No chills, No fever EENTM: see HPI; No blurred vision, No double vision, No vision loss Respiratory: no symptoms reported Cardiovascular: no symptoms reported Gastrointestinal: no symptoms reported Genitourinary: no symptoms reported Musculoskeletal: no symptoms reported Skin: see HPI Psychiatric/Neurological: No Symptoms Reported Endocrine: No Symptoms Reported Hematologic/Lymphatic: No Symptoms Reported Past Ktpdrmy-Uiylcz-Jyjeeq Hx Seasonal Allergies Seasonal Allergies: Yes Past Medical History Surgeries: Yes Coronary Stent, Gallbladder, Hysterectomy Respiratory: Yes Asthma Cardiac: Yes (3 stents) Coronary Artery Disease Neurological: Yes Seizure Disorder [employer]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 Genitourinary: No Gastrointestinal: No Musculoskeletal: No Endocrine: No HEENT: No Cancer: No Psychosocial: No Integumentary: No Blood Disorders: No Family Medical History No Pertinent Family Hx Physical Exam Vital Signs Vital Signs - First Documented 8/28/21 10:04 Temp 36.4 Pulse 90 Resp 18 B/P (MAP) 132/56 (81) Pulse Ox 95 O2 Delivery Room Air Capillary Refill : General Appearance: WD/WN, no apparent distress HEENT: PERRL/EOMI Neck: full range of motion, supple Cardiovascular: normal peripheral pulses, regular rate, rhythm Respiratory: lungs clear, normal breath sounds Gastrointestinal: non tender, soft Extremities: normal range of motion, non-tender Neurologic/Psychiatric: alert, normal mood/affect, oriented x 3 Skin: other (Approximate 1 cm superficial laceration left eyebrow) Skin Problem Location: face Skin Problem Character: linear Procedures/Interventions Wound Location: Eye Other Wound Location Left eyebrow Wound's Depth, Shape: superficial, linear Wound Explored: clean Other Closure Supply: Wound Adhesive Progress Patient tolerated well with no immediate complication Progress/Results/Core Measures Results/Orders My Orders Orders - SCOOBY PADILLA DO Dipht,Pertuss(Acell),Tet Adult (Boostrix (06/23/21 10:15) Medications Given in ED Current Medications Medications Dose Ordered Sig/Edy Route Start Time Stop Time Status Last Admin Dose Admin Diphtheria/ Tetanus/Acell Pertussis 0.5 ml ONCE ONCE IM 06/23/21 10:15 06/23/21 10:16 DC 06/23/21 10:22 0.5 ML Vital Signs/I&O 06/23/21 10:04 Temp 36.4 Pulse 90 Resp 18 B/P (MAP) 132/56 (81) Pulse Ox 95 O2 Delivery Room Air Departure Impression Primary Impression: Laceration of left eyebrow Qualified Codes: S01.112A - Laceration without foreign body of left eyelid and periocular area, initial encounter Disposition: 01 HOME, SELF-CARE Condition: Stable Departure-Patient Inst. Referrals: SAGRARIO FELIX MD (PCP/Family) Primary Care Physician Patient Instructions: Laceration Repair With Glue (DC) Add. Discharge Instructions: Keep clean with warm soapy water All discharge instructions reviewed with patient and/or family. Voiced understanding. SCOOBY PADILLA DO Jun 23, 2021 10:07
--- OUTSIDE RECORDS SUMMARY | 2021-06-23 10:07 | XMS REPORT | Encounter Summary ---
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 Name Role Phone Hero Lester MD PCP Reason for Visit * Radiology Services (Routine) Referred By Contact Referred To Contact Status Reason Specialty Diagnoses / Procedures Josef Parada MD [address] [facility] [address] [place] [address] New Request Radiology Diagnoses Arthritis of right ankle P rocedures ANKLE MIN 3 VIEWS RIGHT Encounter Details Care Team Description Date Type Department Josef Parada MD [address] [facility] [address] [place] [address] [phone] 06/05/2021 [facility] Sports Medicine and Encounter Performance: [facility]: [id number] [place] [address] Social History Date Tobacco Use Types Packs/Day Years Used Never Smoker Smokeless Tobacco: Never Used Comments Alcohol Use Standard Drinks/Week occasional Yes 0 (1 standard drink = 0.6 o z pure alcohol) Sex Assigned at Date Recorded Female 06/01/2021 3:34 PM CDT Date Recorded COVID-19 Exposure Response 06/05/2021 12:57 PM CDT In the last month, have you been in contact with No / Unsure someone who was confirmed or suspected to have Coronavirus / COVID-19? documented as of this encounter Medications at Time of Discharge Start Date End Date Medication Sig Dispensed Refills 08/26/2019 albuterol sulfate (PROAIR every 6 0 HFA) 90 mcg/actuation HFA hours. aerosol inhaler 10/07/2018 ALPRAZolam (XANAX) 1 mg 1 tablet 0 tablet aspirin EC 81 mg tablet every 24 0 hours. cetirizine (ZYRTEC) 10 mg Take 10 mg by 0 tablet mouth daily. 11/02/2018 clopiDOGrel (PLAVIX) 75 every 24 0 mg tablet hours. 06/12/2017 EPINEPHrine (EPIPEN as directed 0 2-JOELLE) 1 mg/mL injection pen (2-Pack) 08/20/2018 fluticasone-salmeterol INHALE 1 PUFF 0 (ADVAIR DISKUS) 250-50 BY MOUTH mcg/dose inhalation disk TWICE DAILY 11/02/2018 gabapentin (NEURONTIN) every 8 0 300 mg capsule hours. 08/06/2017 isosorbide mononitrate ER 60 mg. 0 (IMDUR) 30 mg tablet 06/15/2018 lisinopriL (ZESTRIL) 10 Take 10 mg by 0 mg tablet mouth daily. nitroglycerin (NITROSTAT) 1 tab 0 0.4 mg tablet 08/28/2020 oxyCODONE/acetaminophen every 8 hours 0 (PERCOCET) 5/[address] TAKE ONE (1) 0 (PROTONIX) 40 mg tablet TABLET BY MOUTH ONCE DAILY phenytoin SR (DILANTIN TAKE 2 0 EXTENDED) 100 mg capsule CAPSULES BY MOUTH EACH MORNING & THREE (3) CAPSULES NIGHTLY AT BEDTIME ranolazine ER (RANEXA) every 12 0 1,000 mg tablet hours. 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 Tibiofibular syndesmotic screw is intact and in place without significant [facility] syndesmotic space widening. 2. Marked arthrosis of the tibiotalar joint with fhgx-[id number]-gbeg contact and osseous irregularity. 3. Old healed fracture deformity invo lving the distal fibular diaphysis. 4. Irregularity along the distal aspe ct of the lateral malleolus likely secondary to prior ligamentous injury. 5. Moderate talonavicular joint osteo arthritis. Finalized by Feliciano Lazo M.D. on 2020 3:53 PM. Dictated by Feliciano Lazo M.D. on 06/05/2021 3:52 PM. Narrative Performed At Exam: ANKLE MIN 3 VIEWS RIGHT [facility] CLINICAL INDICATION: 51 years Female. A nkle pain COMPARISON: None. Procedure Note Interface, Radiant Results - 06/05/2021 3:56 PM CDT Exam: ANKLE MIN 3 VIEWS RIGHT CLINICAL INDICATION: 51 years Female. Ankle pain COMPARISON: None. IMPRESSION 1. Tibiofibular syndesmotic screw is in tact and in place without significant syndesmotic space widening. 2. Marked arthrosis of the tibiotalar j oint with pizs-ln-uxgp contact and osseous irregularity. 3. Old healed fracture deformity involv ing the distal fibular diaphysis. 4. Irregularity along the distal aspect of the lateral malleolus likely secondary to prior ligamentous injury. 5. Moderate talonavicular joint osteoar thritis. Finalized by Feliciano Lazo M.D. on 06/05/2021 3:53 PM. Dictated by Feliciano Lazo M.D. on 06/05/2021 3:52 PM. Performing Organization Address City/State/ZIP Code [address] Number [facility] documented in this encounter Visit Diagnoses Not on filedocumented in this encounter
--- OUTSIDE RECORDS SUMMARY | 2021-06-23 10:07 | XMS REPORT | Encounter Summary ---
Author Author [facility] Organization [facility] Address Unknown Phone Unavailable Care Team Providers Care Carboy Filler Name Role Phone Hero Lester MD PCP Reason for Referral * Radiology Services (Routine) Referred By Contact Referred To Contact Status Reason Specialty Diagnoses / Procedures Josef Parada MD [address] [facility] [address] [place] [address] Authorized Radiology Diagnoses Arthritis of right ankle P rocedures CT LOWER EXTREM WO CONT RIGHT Electronically signed by Josef Parada MD at Reason for Visit * Radiology Services (Routine) Referred By Contact Referred To Contact Status Reason Specialty Diagnoses / Procedures Josef Parada MD [address] [facility] [address] [place] [address] [place] [address] Authorized Radiology Diagnoses Arthritis of right ankle P rocedures CT LOWER EXTREM WO CONT RIGHT Encounter Details Care Team Description Date Type Department Josef Parada MD [address] [facility] [address] [place] [address] [phone] Arrived 06/19/[address]: [place], Encounter [facility] [address] [place] [id number] Social History Date Tobacco Use Types Packs/Day Years Used Never Smoker Smokeless Tobacco: Never Used Comments Alcohol Use Standard Drinks/Week occasional Yes 0 (1 standard drink = 0.6 o z pure alcohol) Sex Assigned at Date Recorded Female 06/01/2021 3:34 PM CDT Date Recorded COVID-19 Exposure Response 06/19/2021 7:14 AM CDT In the last month, have you been in contact with No / Unsure someone who was confirmed or suspected to have Coronavirus / COVID-19? documented as of this encounter Plan of Treatment Not on filedocumented as of this encounter Procedures Comments Procedure Name Priority Date/Time Associated Diag nosis CT LOWER EXTREM WO CONT Routine 06/19/2021 Posttr aumatic arthritis RIGHT 7:56 AM CDT of right ankle documented in this encounter Results * CT LOWER EXTREM WO CONT RIGHT (06/19/2021 7:56 AM CDT) Specimen Right Impressions Performed At 1. Prior tibial-fibular syndesmotic screw fixation with intact hardware. [facility] 2. Severe tibiotalar osteoarthrosis a s described. 3. Moderate subtalar and moderate to severe talonavicular osteoarthrosis. 4. Unchanged old healed fracture defo rmity of the mid to distal right fibular diaphysis. By my electronic signature, I attest th at I have personally reviewed the images for this examination and formulated the interpretations and opinions expressed in this report Finalized by Albaro Hunt M.D. on 2020 9:41 AM. Dictated by José Manuel Simon M.D. on 06/19/2021 9:09 AM. Narrative Performed At Exam: CT LOWER EXTREM WO CONT RIGHT [facility] History: Arthritis of right ankle Comparison: Technique: Axial noncontrast images wer e obtained through the right ankle. Thin section images were reconstructed and u tilized for reformatted images. Additional post processing was performe d and 3-D images were reconstructed with horizontal and cephalocaudad rotation. Findings: Previous tibiofibular syndesmotic screw fixation with intact hardware and associated heterotopic ossification. No ankylosis across the tibiofibular syndesmosis. Unchanged old healed fracture deformity of the mid to distal right fibular diaphysis. Severe tibiotalar osteoarthrosis with b one-on-bone contact, subchondral cysts, slight flattening of the talar dome and tibial plafond, and mild lateral subluxation of the talar dome. Moderate subtalar and moderate to severe talonavicular osteoarthrosis. Well-shea icated ossific fragment inferior to the medial malleolus, consistent with old a vulsion injury. Tiny Achilles tendon calcaneal enthesophyte. Limited images of the right knee demons trate tiny marginal osteophytes along the right lateral compartment and tibial sp ana paula. At least mild osteoarthrosis of the visualized patellofemoral joint. Procedure Note Interface, Radiant Results - 06/19/2021 9:45 AM CDT Exam: CT LOWER EXTREM WO CONT RIGHT History: Arthritis of right ankle Comparison: Technique: Axial noncontrast images were obtained through the right ankle. Thin section images were reconstructed and utilized for reformatted images. Additional post processing was performed and 3-D images were reconstructed with horizontal and cephalocaudad rotation. Findings: Previous tibiofibular syndesmotic screw fixation with intact hardware and associated heterotopic ossification. No ankylosis across the tibiofibular syndesmosis. Unchanged old healed fracture deformity of the mid to distal right fibular diaphysis. Severe tibiotalar osteoarthrosis with ijrc-qr-kfaa contact, subchondral cysts, slight flattening of the talar dome and tibial plafond, and mild lateral subluxation of the talar dome. Moderate subtalar and moderate to severe talonavicular osteoarthrosis. Well-corticated ossific fragment inferior to the medial malleolus, consistent with old avulsion injury. Tiny Achilles tendon calcaneal enthesophyte. Limited images of the right knee demonstrate tiny marginal osteophytes along the right lateral compartment and tibial spines. At least mild osteoarthrosis of the visualized patellofemoral joint. IMPRESSION 1. Prior tibial-fibular syndesmotic scr ew fixation with intact hardware. 2. Severe tibiotalar osteoarthrosis as described. 3. Moderate subtalar and moderate to se steven talonavicular osteoarthrosis. 4. Unchanged old healed fracture deform ity of the mid to distal right fibular diaphysis. By my electronic signature, I attest that I have personally reviewed the images for this examination and formulated the interpretations and opinions expressed in this report Finalized by Albaro Hunt M.D. on 06/19/2021 9:41 AM. Dictated by José Manuel Simon M.D. on 06/19/2021 9:09 AM. Performing Organization Address City/State/ZIP Code P taqueria Number [facility] documented in this encounter Visit Diagnoses Diagnosis Posttraumatic arthritis of right ankle Unspecified arthropathy, ankle and foot documented in this encounter
--- OUTSIDE RECORDS SUMMARY | 2021-06-23 10:07 | XMS REPORT | Encounter Summary ---
Author Author [facility] Organization [facility] Address Unknown Phone Unavailable Care Team Providers Care Edi Consultant Name Role Phone Hero Lester MD PCP Encounter Details Care Team Description Date Type Department 06/05/2021 Travel Social History Date Tobacco Use Types Packs/Day [...] Not on filedocumented as of this encounter Visit Diagnoses Not on filedocumented in this encounter
--- OUTSIDE RECORDS SUMMARY | 2021-06-23 10:07 | XMS REPORT | Encounter Summary ---
Author Author [facility] Organization [facility] Address Unknown Phone Unavailable Care Team Providers Care Career Development Counselor Name Role Phone Hero Lester MD PCP Reason for Referral * Radiology Services (Routine) Referred By Contact Referred To Contact Status Reason Specialty Diagnoses / Procedures Josef Parada MD [address] [facility] [address] New Request Radiology Diagnoses Arthritis of right ankle P rocedures ANKLE MIN 3 VIEWS RIGHT Electronically signed by Josef Parada MD at * Radiology Services (Routine) Referred By Contact Referred To Contact Status Reason Specialty Diagnoses / Procedures Josef Parada MD [address] [facility] [address] [place] [address] Authorized Radiology Diagnoses Arthritis of right ankle P rocedures CT LOWER EXTREM WO CONT RIGHT Electronically signed by Josef Parada MD at Reason for Visit * Reason Comments New Patient Encounter Details Care Team Description Date Type Department Josef Parada MD [address] [facility] [address] [phone] Posttraumatic arthritis of right ankle ( Primary Dx) 06/05/2021 Office Visit Sports Medicine and Performance: [facility] Pavilion: [address] [place] [phone] Social History Date Tobacco Use Types Packs/Day [...] / COVID-19? documented as of this encounter Last Filed Vital Signs Reading Time Taken Comments Vital Sign - - Blood Pressure - - Pulse - - Temperature - - Respiratory Rate - - Oxygen Saturation - - Inhaled Oxygen Concentration 83.9 kg (185 lb) 06/05/2021 1:34 PM CDT Weight 160 cm (5' 3") 06/05/2021 1:34 PM CDT Height 32.77 06/05/2021 1:34 PM CDT Body Mass Index documented in this encounter Progress Notes * Josef Parada MD - 06/05/2021 2:00 PM CDT Date of Service: 06/05/2021 History of Present Illness Portia Lincoln is a 51 y.o. female with history of coronary artery stent x5, seiz ures who presents for evaluation of her right ankle. Patient reports she had an injury to her ankle while rollerblading approximately 17 years ago. She had a syndesmotic screw placed at this time. She reports she did well initially how er recently she is noted significant pain and stiffness of her right ankle. She also has noted some prominence of her screw that was placed. She recently seen Dr. Haider who stated that she may benefit from an arthrodesis however she was r eferred here for discussion of arthroplasty. She is a non-smoker. Her seizures have been well controlled on her current medication with no seizure event in the last year. Vitals: 06/05/21 1334 Weight: 83.9 kg (185 lb) Height: 160 cm (63") PainSc: Three Review of Systems Constitutional: Negative for chills and fever. Musculoskeletal: Positive for gait problem and joint swelling. Skin: Negative for wound. Social History Occupational History Not on file Tobacco Use Smoking status: Not on file Substance and Sexual Activity Alcohol use: Not on file Drug use: Not on file Sexual activity: Not on file No past surgical history on file. Not on File No current outpatient medications on file prior to visit. No current facility-administered medications on file prior to visit. Physical Exam HENT: Head: Normocephalic and atraumatic. Eyes: Conjunctivae and EOM are normal. Cardiovascular: Normal rate and intact distal pulses. Pulmonary/Chest: Effort normal. No respiratory distress. Neurological: Alert and oriented to person, place, and time. Skin: Skin is warm and dry. Psychiatric: Portia Lincoln appears well, normal mood and affect. Behavior is nor mal. Judgment and thought content normal. No acute distress. Ortho Exam Today I examined the right lower extremity On exam her right ankle is quite swollen compared to the contralateral ankle. S he has limited active and passive range of motion here. Sensations intact throu ghout all distributions of the foot. She has no wounds about her ankle. She do es have a prominent screw laterally this does not seem to be tender for her at a ll. On standing she does have slight hindfoot varus. Imaging Radiographs obtained in the office today include 3 views of the right ankle whic h show significant arthritic changes in the tibiotalar joint. Imaging was reviewed with the patient. Assessment and Plan 51-year-old female with right ankle posttraumatic arthritis -Had a long discussion with Portia regarding her ankle arthritis and possible t reatment options. I think she would be a reasonable candidate for an ankle repl acement. We discussed the details of the procedure including risks, benefits, a lternatives and post operative convalescence. She was agreeable and elected to p roceed with a total ankle arthroplasty. We will need to get weightbearing plain films today before she leaves as well as a CT scan with prophecy protocol. We will schedule surgery for a mutually convenient date. Surgery: Right total ankle arthroplasty in bone 30 minute total encounter time to include record review, history, examination, d iscussion of my findings, coordination of care, ordering and documentation. documented in this encounter Plan of Treatment [...] right fibular diaphysis. Severe tibiotalar osteoarthrosis with yyxe-pl-szsl contact, subchondral cysts, slight flattening of the [...] Code P taqueria Number [facility] * ANKLE MIN 3 VIEWS RIGHT (06/05/2021 2:23 PM CDT) Specimen Right Impressions Performed At 1. Tibiofibular syndesmotic screw is intact and in place without significant [facility] syndesmotic space widening. 2. Marked arthrosis of the tibiotalar joint with [id number]-[id number] contact and osseous irregularity. 3. Old healed [...] arthrosis of the tibiotalar j oint with btge-pl-dawb contact and osseous irregularity. 3. Old healed [...] Diagnoses Diagnosis Posttraumatic arthritis of right ankle - Primary Unspecified arthropathy, ankle and foot documented in this encounter Historical Medications * This list may reflect changes made after this encounter. Start Date End Date Medication Sig Dispensed Refills nitroglycerin (NITROSTAT) 1 tab 0 0.4 mg tablet 08/20/2018 fluticasone-salmeterol INHALE 1 PUFF 0 (ADVAIR DISKUS) 250-50 BY MOUTH mcg/dose inhalation disk TWICE DAILY 06/12/2017 EPINEPHrine (EPIPEN as directed 0 2-JOELLE) 1 mg/mL injection pen (2-Pack) aspirin EC 81 mg tablet every 24 0 hours. 08/26/2019 albuterol sulfate (PROAIR every 6 0 HFA) 90 mcg/actuation HFA hours. aerosol inhaler 11/02/2018 gabapentin (NEURONTIN) every 8 0 300 mg capsule hours. 11/02/2018 clopiDOGrel (PLAVIX) 75 every 24 0 mg tablet hours. 08/06/2017 isosorbide mononitrate ER 60 mg. 0 (IMDUR) [address] TAKE ONE (1) 0 (PROTONIX) 40 mg tablet TABLET BY MOUTH ONCE DAILY 06/15/2018 lisinopriL (ZESTRIL) 10 Take 10 mg by 0 mg tablet mouth daily. 10/07/2018 ALPRAZolam (XANAX) 1 mg 1 tablet 0 tablet cetirizine (ZYRTEC) 10 mg Take 10 mg by 0 tablet mouth daily. 08/28/2020 oxyCODONE/acetaminophen every 8 hours 0 (PERCOCET) 5/325 mg tablet ranolazine ER (RANEXA) every 12 0 1,000 mg tablet hours. phenytoin SR (DILANTIN TAKE 2 0 EXTENDED) 100 mg capsule CAPSULES BY MOUTH EACH MORNING & THREE (3) CAPSULES NIGHTLY AT BEDTIME added in this encounter
--- OUTSIDE RECORDS SUMMARY | 2021-06-23 10:07 | XMS REPORT | Encounter Summary ---
Author Author [facility] Organization [facility] Address Unknown Phone Unavailable Care Team Providers Care Trust Accounts Supervisor Name Role Phone Hero Lester MD PCP Encounter Details Care Team Description Date Type Department 06/19/2021 Travel Social History Date Tobacco Use Types [...]
--- OUTSIDE RECORDS SUMMARY | 2021-06-23 10:07 | XMS REPORT | Clinical Summary ---
Author Author [facility] Organization [facility] Address Unknown Phone Unavailable Care Team Providers Care Microsoft Systems Engineer Name Role Phone Hero Lester MD PCP Source Comments Some departments are not documenting in the electronic medical record. If you d o not see the information that you expected, contact Release of Information in [facility] [employer] Information Management department at [phone] for further assistan ce in locating additional records.[facility] Allergies Comments Active Allergy Reactions Severity Noted Date Stabbing sensation, burning Butorphanol SEE COMMENTS Low 03/15/2021 Cyclobenzaprine HALLUCINATION High 06/05/2021 S Levofloxacin HEADACHE, Low 07/26/2010 NAUSEA AND VOMITING Visual changes, low pulse Meperidine SEE COMMENTS, Low 03/15/2021 UNKNOWN Feels like she is on "speed" Metoclopramide SEE COMMENTS, Low 12/22/2015 UNKNOWN Metoprolol SEE COMMENTS, Medium 01/22/2018 UNKNOWN Morphine ANAPHYLAXIS High 01/22/2018 States unable to walk due to muscle weakness Prasugrel SEE COMMENTS, Low 01/19/2016 UNKNOWN Pt says it makes her head feel like it is going to explode Tramadol SEE COMMENTS, Low 07/26/2010 UNKNOWN Medications End Date Status Medication Sig Dispensed Refills Start Date Active phenytoin SR (DILANTIN TAKE 2 0 EXTENDED) 100 mg capsule CAPSULES BY MOUTH EACH MORNING & THREE (3) CAPSULES NIGHTLY AT BEDTIME Active ranolazine ER (RANEXA) every 12 0 1,000 mg tablet hours. Active oxyCODONE/acetaminophen every 8 hours 0 (PERCOCET) 5/325 mg 0 tablet Active cetirizine (ZYRTEC) 10 mg Take 10 mg by 0 tablet mouth daily. Active ALPRAZolam (XANAX) 1 mg 1 tablet 0 tablet 8 Active lisinopriL (ZESTRIL) 10 Take 10 mg by 0 mg tablet mouth daily. [address] TAKE ONE (1) 0 (PROTONIX) 40 mg tablet TABLET BY MOUTH ONCE DAILY Active isosorbide mononitrate ER 60 mg. 0 07/27 (IMDUR) 30 mg tablet 7 Active clopiDOGrel (PLAVIX) 75 every 24 0 mg tablet hours. 9 Active gabapentin (NEURONTIN) every 8 0 01 300 mg capsule hours. 9 Active albuterol sulfate (PROAIR every 6 0 07/29 HFA) 90 mcg/actuation HFA hours. 9 aerosol inhaler Active aspirin EC 81 mg tablet every 24 0 hours. Active EPINEPHrine (EPIPEN as directed 0 2-JOELLE) 1 mg/mL injection 7 pen (2-Pack) Active fluticasone-salmeterol INHALE 1 PUFF 0 (ADVAIR DISKUS) 250-50 BY MOUTH 8 mcg/dose inhalation disk TWICE DAILY Active nitroglycerin (NITROSTAT) 1 tab 0 0.4 mg tablet Active Problems Not on file Encounters Care Team Description Date Type Specialty Josef Parada MD Arrived 06/19/2021 Hospital Radiology Encounter 06/19/2021 Travel Josef Parada MD 06/05/2021 Hospital Radiology Encounter Josef Parada MD Posttraumatic arthritis of right ankle ( Primary Dx) 06/05/2021 Office Visit Sports Medicine 06/05/2021 Travel from Last 3 Months Social History Date Tobacco Use Types Packs/Day [...] or suspected to have Coronavirus / COVID-19? Last Filed Vital Signs Reading Time Taken Comments Vital Sign - - Blood Pressure - - Pulse - - Temperature - - Respiratory Rate - - Oxygen Saturation - - Inhaled Oxygen Concentration 83.9 kg (185 lb) 06/05/2021 1:34 PM CDT Weight 160 cm (5' 3") 06/05/2021 1:34 PM CDT Height 32.77 06/05/2021 1:34 PM CDT Body Mass Index Plan of Treatment Health Maintenance Due Date Last Done Comments MEDICARE ANNUAL WELLNESS 1968 VISIT HIV SCREENING 1983 DTAP/TDAP VACCINES (1 - 1986 Tdap) HEPATITIS C SCREENING 1986 PHYSICAL (COMPREHENSIVE) 1986 EXAM CERVICAL CANCER SCREENING 1989 BREAST CANCER SCREENING 2008 COLORECTAL CANCER 2018 SCREENING SHINGLES RECOMBINANT 2018 VACCINE (1 of 2) INFLUENZA VACCINE 07/27/2021 Procedures Comments Procedure Name Priority Date/Time Associated Diag nosis CT LOWER EXTREM WO CONT Routine 06/19/2021 Posttr aumatic arthritis RIGHT 7:56 AM CDT of right ankle ANKLE MIN 3 VIEWS RIGHT Routine 06/05/2021 Posttr aumatic arthritis 2:23 PM CDT of right ankle from Last 3 Months Results * CT LOWER EXTREM WO CONT [...] right fibular diaphysis. Severe tibiotalar osteoarthrosis with krts-fg-uqji contact, subchondral cysts, slight flattening of the [...] Marked arthrosis of the tibiotalar joint with rcjn-dj-drbc contact and osseous irregularity. 3. Old healed [...] arthrosis of the tibiotalar j oint with qumx-ne-civr contact and osseous irregularity. 3. Old healed [...] Code P taqueria Number [facility] RES[facility] from Last 3 Months Insurance Type Payer Benefit Subscriber ID Effective Phone Address Plan / Dates Group Medicare AETNA MEDICARE AETNA [id number] 2020-P MEDICARE resent PPO [id number] (Home) [place] [phone] Advance Directives Patient Cfo Controller Explanation Type Date Recorded Advance Directive/DPOA
[2021-06-23] MEDS ORDERED: TETANUS,DIPTH,PERTUSS P/F (BOOSTRIX) 0.5 ML VIAL IM ONE (10:15)
== END 2021-06-23 10:23 | disposition home or self-care (01) ==
LOC: EDUNIT# 10:02 → ER FS 10:03
DX: S01.112A Laceration without foreign body of left eyelid and periocular area, initial encounter (principal); J45.909 Unspecified asthma, uncomplicated; Z23 Encounter for immunization; Z79.52 Long term (current) use of systemic steroids; Z79.01 Long term (current) use of anticoagulants; W22.8XXA Striking against or struck by other objects, initial encounter
CPT/HCPCS: 12011; 90715

== ENCOUNTER → 2022-06-12 | Outpatient (CLI) | payer MEDICARE ==
--- NOTE | 2022-06-12 08:25 | Diagnostic Imaging Report ---
INDICATION: Status post CABG. Time of Exam: 8:06 AM Comparison is made with prior chest from 01/03/2020. Since prior study, patient has undergone median sternotomy and CABG. There is some atelectasis in left base. There is a tiny left apical pneumothorax. The right lung is clear. No effusion is seen. IMPRESSION: Status post CABG. There is a tiny left apical pneumothorax. Dictated by: Dictated on workstation # [id number]
== END ==
LOC: RAD FS 07:48
PROVIDERS: ATTEND Nurse Practitioner
DX: J93.9 Pneumothorax, unspecified (principal); Z95.1 Presence of aortocoronary bypass graft
CPT/HCPCS: 71046

== ENCOUNTER 2023-06-15 10:47 | Inpatient (IN) | payer MEDICARE, MEDICAID ==
[2023-06-15] VITALS (14 sets, daily range): BP systolic 94–170; BP diastolic 57–103
[~2023-06-15] VITALS: Ht 157.5 cm; Wt 91.2 kg
[2023-06-15] MEDS ORDERED: ASPIRIN 81 MG CHEWABLE TABLET PO ONE (11:00)
[2023-06-15 11:05] LABS: BASOPHILS % (AUTO) 0 % (0-10); EOSINOPHILS % (AUTO) 1 % (0-10); HEMATOCRIT 43 % (35-52); HEMOGLOBIN 14.8 g/dL (11.5-16.0); LYMPHOCYTES # (AUTO) 1.9 10^3/uL (1.0-4.0); LYMPHOCYTES % (AUTO) 27 % (12-44); MEAN CORPUSCULAR HEMOGLOBIN 30 pg (25-34); MEAN CORPUSCULAR HGB CONC 34 g/dL (32-36); MEAN CORPUSCULAR VOLUME 86 fL (80-99); MEAN PLATELET VOLUME 9.5 fL (9.0-12.2); MONOCYTES # (AUTO) 0.5 10^3/uL (0.0-1.0); MONOCYTES % (AUTO) 7 % (0-12); NEUTROPHILS # (AUTO) 4.6 10^3/uL (1.8-7.8); NEUTROPHILS % (AUTO) 65 % (42-75); PLATELET COUNT 200 10^3/uL (130-400); WHITE BLOOD COUNT 7.2 10^3/uL (4.3-11.0)
--- NOTE | 2023-06-15 11:11 | ED Chest Pain ---
General Chief Complaint: Chest Pain Stated Complaint: CHEST PAIN Source: patient Exam Limitations: no limitations History of Present Illness Date Seen by Provider: Jun 15, 2023 Time Seen by Provider: 10:57 Initial Comments 53-year-old female presents to the emergency department for chest pain. About a year ago she had a two-vessel bypass. In November of last year she was having recurrent symptoms and was told that one of her bypass grafts had "completely closed off." She has had minimal symptoms since that time. Today her chest pain started about an hour prior to arrival and is described as a deep pressure in her left anterior chest wall to her left shoulder and jaw. It is associated with some shortness of breath and difficulty taking a deep breath. No fevers chills or cough. No changes in bowel or bladder habits. She sees Dr. Gann at [facility] in [place]. She did take nitroglycerin prior to arrival which she states did not help with her pain. All other systems reviewed and negative except documented per HPI. Voice recognition software was used to help create this chart Allergies and Home Medications Allergies Coded Allergies: butorphanol (Verified Allergy, Unknown, 08/16/19) cyclobenzaprine (Verified Allergy, Unknown, 08/16/19) levofloxacin (Verified Allergy, Unknown, 08/16/19) meperidine (Verified Allergy, Unknown, 08/16/19) metoclopramide (Verified Allergy, Unknown, 08/16/19) morphine (Verified Allergy, Unknown, 08/16/19) prasugrel (Verified Allergy, Unknown, 08/16/19) tramadol (Verified Allergy, Unknown, 08/16/19) Patient Home Medication List Home Medication List Reviewed: Yes Famotidine (Pepcid) 20 Mg Tablet, 20 MG PO BID Prescribed by: SHASHANK MTZ on 08/16/192001 Prednisone (Prednisone) 20 Mg Tab, 40 MG PO DAILY Prescribed by: SHASHANK MTZ on 08/16/192001 Prednisone (Prednisone) 20 Mg Tab, 40 MG PO DAILY Prescribed by: JONNATHAN NOVAK on 09/16/192124 Review of Systems Review of Systems Constitutional: see HPI Past Xegdyih-Eejyuh-Rwusgu Hx Patient Social History Tobacco Use?: No Use of E-Cig and/or Vaping dev: No Substance use?: No Alcohol Use?: Yes Alcohol Frequency: Once in a while Pt feels they are or have been: No Immunizations Up To Date Influenza Vaccine Up-to-Date: No; Not Current First/Initial COVID19 Vaccinat: Denies Seasonal Allergies Seasonal Allergies: Yes Past Medical History Surgery/Hospitalization HX: [place]; CABG; GERD; seasonal allergies; COPD; HTN; High Cholesterol Surgeries: Yes Coronary Stent, Gallbladder, Hysterectomy Respiratory: Yes Asthma Cardiac: Yes (3 stents) Coronary Artery Disease Neurological: Yes Seizure Disorder CSW History: Hysterectomy Genitourinary: No Gastrointestinal: No Musculoskeletal: No Endocrine: No HEENT: No Cancer: No Psychosocial: No Integumentary: No Blood Disorders: No Family Medical History No Pertinent Family Hx Physical Exam Vital Signs Vital Signs - First Documented 06/15/23 10:47 Temp 36.6 Pulse 59 Resp 14 B/P (MAP) 154/71 (98) Pulse Ox 96 O2 Delivery Room Air Capillary Refill : Less Than 3 Seconds Height, Weight, BMI Height: '" Weight: lbs. oz. kg; 33.00 BMI Method: General Appearance: WD/WN, Mild Distress (appears to be in pain) HEENT: Normal ENT Inspection, Pharynx Normal Neck: Full Range of Motion, Normal Inspection, Non Tender, Supple Respiratory: Chest Non Tender, Lungs Clear, Normal Breath Sounds, No Accessory Muscle Use, No Respiratory Distress Cardiovascular: Regular Rate, Rhythm, No Murmur, Normal Peripheral Pulses Gastrointestinal: Normal Bowel Sounds, No Organomegaly, Non Tender, Soft Extremity: Normal Capillary Refill, Normal Inspection, No Pedal Edema Neurologic/Psychiatric: Alert, Oriented x3 Skin: Normal Color, Warm/Dry Progress/Results/Core Measures Results/Orders Lab Results Laboratory Tests Test 06/15/23 10:55 Range/Units White Blood Count 7.2 4.3-11.0 10^3/uL Red Blood Count 5.02 3.80-5.11 10^6/uL Hemoglobin 14.8 11.5-16.0 g/dL Hematocrit 43 35-52 % Mean Corpuscular Volume 86 80-99 fL Mean Corpuscular Hemoglobin 30 25-34 pg Mean Corpuscular Hemoglobin Concent 34 32-36 g/dL Red Cell Distribution Width 12.7 10.0-14.5 % Platelet Count 200 130-400 10^3/uL Mean Platelet Volume 9.5 9.0-12.2 fL Immature Granulocyte % (Auto) 0 % Neutrophils (%) (Auto) 65 42-75 % Lymphocytes (%) (Auto) 27 12-44 % Monocytes (%) (Auto) 7 0-12 % Eosinophils (%) (Auto) 1 0-10 % Basophils (%) (Auto) 0 0-10 % Neutrophils # (Auto) 4.6 1.8-7.8 10^3/uL Lymphocytes # (Auto) 1.9 1.0-4.0 10^3/uL Monocytes # (Auto) 0.5 0.0-1.0 10^3/uL Eosinophils # (Auto) 0.0 0.0-0.3 10^3/uL Basophils # (Auto) 0.0 0.0-0.1 10^3/uL Immature Granulocyte # (Auto) 0.0 0.0-0.1 10^3/uL Sodium Level 138 135-145 MMOL/L Potassium Level 4.7 3.6-5.0 MMOL/L Chloride Level 102 98-107 MMOL/L Carbon Dioxide Level 24 21-32 MMOL/L Anion Gap 12 5-14 MMOL/L Blood Urea Nitrogen 18 7-18 MG/DL Creatinine 0.84 0.60-1.30 MG/DL Estimat Glomerular Filtration Rate 82 BUN/Creatinine Ratio 21 Glucose Level 125 H 70-105 MG/DL Calcium Level 9.4 8.5-10.1 MG/DL Corrected Calcium 8.5-10.1 MG/DL Magnesium Level 2.0 1.6-2.4 MG/DL Total Bilirubin 0.3 0.1-1.0 MG/DL Aspartate Amino Transf (AST/SGOT) 16 5-34 U/L Alanine Aminotransferase (ALT/SGPT) 22 0-55 U/L Alkaline Phosphatase 157 H 40-136 U/L Troponin I < 0.30 <0.30 NG/ML Total Protein 7.7 6.4-8.2 GM/DL Albumin 5.0 H 3.2-4.5 GM/DL My Orders Orders - DODIECL Marcelino DO Cbc With Automated Diff (06/15/23 11:00) Magnesium (06/15/23 11:00) Chest 1 View Ap/Pa Only (06/15/23 11:00) Comprehensive Metabolic Panel (06/15/23 11:00) Monitor-Rhythm Ecg Trace Only (06/15/23 11:00) Aspirin Chewable Tablet (Aspirin Chewabl (06/15/23 11:00) Ed Iv/Invasive Line Start (06/15/23 11:00) Troponin I Fs (06/15/23 11:00) Fentanyl Injection (Fentanyl Injection (06/15/23 11:15) Ticagrelor Tablet (Brilinta Tablet) (06/15/23 11:45) Enoxaparin Injection (Enoxaparin Injecti (06/15/23 11:45) Ondansetron Injection (Zofran Injectio (06/15/23 12:00) Medications Given in ED Current Medications Medications Dose Ordered Sig/Edy Route Start Time Stop Time Status Last Admin Dose Admin Aspirin 324 mg ONCE ONCE PO 06/15/23 11:00 06/15/23 11:02 DC 06/15/23 11:05 324 MG Fentanyl Citrate 50 mcg ONCE ONCE IVP 06/15/23 11:15 06/15/23 11:16 DC 06/15/23 11:14 50 MCG Vital Signs/I&O 06/15/23 10:47 Temp 36.6 Pulse 59 Resp 14 B/P (MAP) 154/71 (98) Pulse Ox 96 O2 Delivery Room Air Initial ECG Comparisson: Changed Comment Sinus bradycardia with a rate of 58 bpm. Normal intervals. Normal axis. ST depressions or T wave inversions in leads I and aVL. T wave inversions in V1 and V2 there is slight J-point elevation in lead III. This does seem to be a change from December 2019 comparison that I have. No STEMI. No ectopy. Departure Communication (Admissions) Patient's story and symptoms are concerning for ACS. She does have some EKG changes with T wave inversions in lead I and aVL, V1 and V2. There is also some slight J-point elevation in lead II which concerns me. No STEMI at this time. Her pain is relieved with fentanyl. This caused her to be slightly nauseated so I gave her some IV Zofran as well. I did give her aspirin early on in her hospital course and she already took nitroglycerin at home which did not help so I did not give her any more nitroglycerin. Chest x-ray is without any acute cardiopulmonary abnormality on my independent review. Her chemistry, CBC are grossly unremarkable. I spoke with Dr. Ott, recommendations below. I spoke to Dr. Veras who accepts the patient in transfer with no further requests at this time. 1130: Spoke to Dr Ott, requests brillinta 180mg PO now then 90 bid. Also requests full dose lovenox. Spoke to Dr Garcia, accepts transfer. Impression Primary Impression: Chest pain Qualified Codes: R07.9 - Chest pain, unspecified Disposition: 30 STILL A PATIENT Condition: Stable Admissions Decision to Admit Reason: Admit from ER (General) Departure-Patient Inst. Referrals: SAGRARIO FELIX MD (PCP) Primary Care Physician CL STOLL DO Jun 15, 2023 11:11
[2023-06-15] MEDS ORDERED: fentaNYL INJECTION 100 MCG/2 ML VIAL IVP ONE ×2 (11:15→14:00)
[2023-06-15 11:22] LABS: BUN/CREATININE RATIO 21; CALCIUM 9.4 MG/DL (8.5-10.1); CARBON DIOXIDE 24 MMOL/L (21-32); CHLORIDE 102 MMOL/L (98-107); CREATININE SERUM 0.84 MG/DL (0.60-1.30); GFR ESTIMATED 82; GLUCOSE 125 MG/DL (70-105); POTASSIUM 4.7 MMOL/L (3.6-5.0); SODIUM 138 MMOL/L (135-145)
[2023-06-15 11:23] LABS: ALANINE AMINOTRANSFERASE 22 U/L (0-55); ALKALINE PHOSPHATASE 157 U/L (40-136); BILIRUBIN,TOTAL 0.3 MG/DL (0.1-1.0); TOTAL PROTEIN 7.7 GM/DL (6.4-8.2)
--- NOTE | 2023-06-15 11:32 | Diagnostic Imaging Report ---
INDICATION: Chest pain TECHNIQUE: Single view chest 11:01 AM CORRELATION STUDY: 06/12/2022 FINDINGS: Sternal wires intact. Heart size enlarged. Coronary artery stent left heart border. Vasculature overall within normal lives. Lung munoz are clear. No appreciable pneumothorax at follow-up. IMPRESSION: 1. Poststernotomy. Cardiac enlargement without failure. Dictated by: Dictated on workstation # [id number]
[2023-06-15] MEDS ORDERED: ENOXAPARIN 100 MG/1 ML SYRINGE SC ONE (11:45)
[2023-06-15] MEDS ORDERED: TICAGRELOR 90 MG TABLET (BRILINTA) PO ONE (11:45)
[2023-06-15] MEDS ORDERED: ONDANSETRON INJECTION 4 MG/2 ML (SDV) IVP ONE (12:00)
[2023-06-15] MEDS ORDERED: NALOXONE 0.4 MG/ML 1 ML VIAL IV PRN (13:15)
[2023-06-15] MEDS ORDERED: NITROGLYCERIN 0.4 MG SL TABLETS BTL 25'S SL PRN (13:15)
[2023-06-15] MEDS ORDERED: PATIENT MAY USE OWN MEDS, ALL PO SCH (13:15)
[2023-06-15] MEDS ORDERED: ACETAMINOPHEN 325 MG TABLET PO PRN (13:15)
[2023-06-15] MEDS ORDERED: ONDANSETRON INJECTION 4 MG/2 ML (SDV) IVP PRN (13:15)
[2023-06-15] MEDS ORDERED: oxyCODONE/ACETAMINOPHEN 5/325MG TABLET PO SCH (14:00)
[2023-06-15] MEDS ORDERED: ROSU40TA23 PO (14:26)
[2023-06-15] MEDS ORDERED: CETI10CA PO (14:26)
[2023-06-15] MEDS ORDERED: MONT-47 PO (14:26)
[2023-06-15] MEDS ORDERED: FLUT1DIS26 IH (14:26)
[2023-06-15] MEDS ORDERED: NITR0.4T42 SL (14:26)
[2023-06-15] MEDS ORDERED: PHEN100C4 PO (14:26)
[2023-06-15] MEDS ORDERED: CLOP-31 PO (14:26)
[2023-06-15] MEDS ORDERED: OXYC1TAB11 PO (14:26)
[2023-06-15] MEDS ORDERED: EPIN0.3P2 IJ (14:26)
[2023-06-15] MEDS ORDERED: RT-ALBUINH INH (14:26)
[2023-06-15] MEDS ORDERED: RANO500T6 PO (14:26)
[2023-06-15] MEDS ORDERED: PANT40TA2 PO (14:26)
[2023-06-15] MEDS ORDERED: LISI10TA25 PO (14:26)
[2023-06-15] MEDS ORDERED: GBPN600T PO (14:26)
[2023-06-15] MEDS ORDERED: ALPR1TAB2 PO (14:26)
[2023-06-15] MEDS ORDERED: NITRO DRIP 25000 MCG/D5W 250 ML IV SCH ×2 (15:15→17:52)
[2023-06-15] MEDS: IBUPROFEN 800 MG TABLET PO PRN ×2 (16:17→22:13)
--- NOTE | 2023-06-15 16:23 | Consultation-Cardiology ---
HPI-Cardiology Cardiology Consultation: Date of Consultation 06/15/23 Date of Admission Attending Physician Hero Lester MD Admitting Physician Admitting Physician: Dickson Talavera MD Attending Physician: Dickson Talavera MD Consulting Physician Anayeli NGUYỄN MD HPI: Time Seen by a Provider: 15:00 Chief Complaint: Chest pain This is a 53-year-old lady who has previous history of CABG. Patient [facility] with cardiology at [facility] in [place]. Presents with chest discomfort. Patient denies active smoking. She took nitroglycerin this morning but did not help. Review of Systems-Cardiology Review of Systems Constitutional: no symptoms reported Eyes: no symptoms reported Ears/Nose/Throat: no symptoms reported Respiratory: shortness of breath Cardiovascular: chest pain AHI-Wnheul-Otmlzm Hx Patient Social History Smoking Status: Former Smoker 2nd Hand Smoke Exposure: No Alcohol Use?: Yes Pt feels they are or have been: No Past Medical History PMH As described under Assessment. Allergies and Home Medications Allergies Coded Allergies: butorphanol (Verified Allergy, Unknown, 08/16/19) cyclobenzaprine (Verified Allergy, Unknown, 08/16/19) levofloxacin (Verified Allergy, Unknown, 08/16/19) meperidine (Verified Allergy, Unknown, 08/16/19) metoclopramide (Verified Allergy, Unknown, 08/16/19) morphine (Verified Allergy, Unknown, 08/16/19) prasugrel (Verified Allergy, Unknown, 08/16/19) tramadol (Verified Allergy, Unknown, 08/16/19) Patient Home Medication List Home Medication List Reviewed: Yes Albuterol Sulfate (Ventolin Hfa) 1 Puff Puff, 1 PUFF INH Q4H PRN for SHORTNESS OF BREATH Prescribed by: KAT SILVEIRA on 06/15/231425 Last Action: New Order Alprazolam (Xanax) 1 Mg Tablet, 1 MG PO TID Prescribed by: KAT SILVEIRA on 06/15/231425 Last Action: New Order Cetirizine HCl (Zyrtec) 10 Mg Capsule, 10 MG PO DAILY Prescribed by: KAT SILVEIRA on 06/15/231425 Last Action: New Order Clopidogrel Bisulfate (Plavix) 75 Mg Tablet, 75 MG PO DAILY Prescribed by: KAT SILVEIRA on 06/15/231425 Last Action: New Order Epinephrine (Epipen) 0.3 Mg/0.3 Ml Auto.injct, 0.3 MG IJ PRN Prescribed by: KAT SILVEIRA on 06/15/231425 Last Action: New Order Famotidine (Pepcid) 20 Mg Tablet, 20 MG PO BID Prescribed by: SHASHANK MTZ on 08/16/192001 Last Action: Reviewed Fluticasone/Salmeterol (Advair 250-50 Diskus) 250 Mcg-50 Mcg/Dose Blst.w.dev, 1 EACH IH BID Prescribed by: KAT SILVEIRA on 06/15/231425 Last Action: New Order Gabapentin (Gabapentin) 600 Mg Tablet, 600 MG PO QID Prescribed by: KAT SILVEIRA on 06/15/231425 Last Action: New Order Lisinopril (Lisinopril) 10 Mg Tablet, 10 MG PO DAILY Prescribed by: KAT SILVEIRA on 06/15/231425 Last Action: New Order Montelukast Sodium (Singulair) 10 Mg Tablet, 10 MG PO DAILY Prescribed by: KAT SILVEIRA on 06/15/231425 Last Action: New Order Nitroglycerin (Nitroglycerin) 0.4 Mg Tab.subl, 0.4 MG SL PRN PRN for PAIN Prescribed by: KAT SILVEIRA on 06/15/231425 Last Action: New Order Oxycodone HCl/Acetaminophen (Oxycodone-Acetaminophen 5-325) 5 Mg-325 Mg Tablet, 1 EACH PO TID Prescribed by: KAT SILVEIRA on 06/15/231425 Last Action: New Order Pantoprazole Sodium (Protonix) 40 Mg Tablet.dr, 40 MG PO DAILY Prescribed by: KAT SILVEIRA on 06/15/231425 Last Action: New Order Phenytoin Sodium Extended (Dilantin) 100 Mg Capsule, 100 MG PO 5XD Prescribed by: KAT SILVEIRA on 06/15/231425 Last Action: New Order Prednisone (Prednisone) 20 Mg Tab, 40 MG PO DAILY Prescribed by: SHASHANK MTZ on 08/16/192001 Prednisone (Prednisone) 20 Mg Tab, 40 MG PO DAILY Prescribed by: JONNATHAN NOVAK on 09/16/192124 Ranolazine (Ranolazine ER) 500 Mg Tab.er.12h, 500 MG PO BID Prescribed by: KAT SILVEIRA on 06/15/231425 Last Action: New Order Rosuvastatin Calcium (Rosuvastatin Calcium) 40 Mg Tablet, 40 MG PO DAILY Prescribed by: KAT SILVEIRA on 06/15/231425 Last Action: New Order Exam Vital Signs Vital Signs Date Time Temp Pulse Resp B/P (MAP) Pulse Ox O2 Delivery O2 Flow Rate FiO2 06/15/23 16:00 60 17 119/103 (109) 97 Room Air 06/15/23 15:49 0.00 06/15/23 15:49 36.6 21 Physical Exam Constitutional: Mild chest discomfort. Chest: Clear to auscultation bilaterally. CVS: Normal rate and rhythm. Neuro: Nonfocal. No pedal edema. Labs Laboratory Tests Test 06/15/23 10:55 06/15/23 14:20 Range/Units White Blood Count 7.2 4.3-11.0 10^3/uL Red Blood Count 5.02 3.80-5.11 10^6/uL Hemoglobin 14.8 11.5-16.0 g/dL Hematocrit 43 35-52 % Mean Corpuscular Volume 86 80-99 fL Mean Corpuscular Hemoglobin 30 25-34 pg Mean Corpuscular Hemoglobin Concent 34 32-36 g/dL Red Cell Distribution Width 12.7 10.0-14.5 % Platelet Count 200 130-400 10^3/uL Mean Platelet Volume 9.5 9.0-12.2 fL Immature Granulocyte % (Auto) 0 % Neutrophils (%) (Auto) 65 42-75 % Lymphocytes (%) (Auto) 27 12-44 % Monocytes (%) (Auto) 7 0-12 % Eosinophils (%) (Auto) 1 0-10 % Basophils (%) (Auto) 0 0-10 % Neutrophils # (Auto) 4.6 1.8-7.8 10^3/uL Lymphocytes # (Auto) 1.9 1.0-4.0 10^3/uL Monocytes # (Auto) 0.5 0.0-1.0 10^3/uL Eosinophils # (Auto) 0.0 0.0-0.3 10^3/uL Basophils # (Auto) 0.0 0.0-0.1 10^3/uL Immature Granulocyte # (Auto) 0.0 0.0-0.1 10^3/uL Sodium Level 138 135-145 MMOL/L Potassium Level 4.7 3.6-5.0 MMOL/L Chloride Level 102 98-107 MMOL/L Carbon Dioxide Level 24 21-32 MMOL/L Anion Gap 12 5-14 MMOL/L Blood Urea Nitrogen 18 7-18 MG/DL Creatinine 0.84 0.60-1.30 MG/DL Estimat Glomerular Filtration Rate 82 BUN/Creatinine Ratio 21 Glucose Level 125 H 70-105 MG/DL Calcium Level 9.4 8.5-10.1 MG/DL Corrected Calcium 8.5-10.1 MG/DL Magnesium Level 2.0 1.6-2.4 MG/DL Total Bilirubin 0.3 0.1-1.0 MG/DL Aspartate Amino Transf (AST/SGOT) 16 5-34 U/L Alanine Aminotransferase (ALT/SGPT) 22 0-55 U/L Alkaline Phosphatase 157 H 40-136 U/L Troponin I < 0.30 < 0.028 <0.028 NG/ML Total Protein 7.7 6.4-8.2 GM/DL Albumin 5.0 H 3.2-4.5 GM/DL ECG Impression ECG Initial ECG Rhythm: Normal Sinus Comment Normal sinus rhythm with T wave inversions noted in the anterior precordial leads. A/P-Cardiology Assessment/Admission Diagnosis Unstable angina, CAD/CABG, Hyperlipidemia, Hypertension Plan Unstable angina with gradually improving chest discomfort. However serial troponin are negative. EKG does show T wave inversions. Due to history of CABG, we will treat as unstable angina with dual antiplatelet therapy. Brilinta bolus given in the ER. Full dose Lovenox. We will start IV nitroglycerin. May require cardiac catheterization tomorrow. N.p.o. after midnight. During my examination when I put the stethoscope on her chest, she complained of reproducible chest pain. Even though she is having reproducible chest pain which could be musculoskeletal in origin or pericarditis. Due to her risk factors, EKG and past history we will treat her as unstable angina. Anayeli NGUYỄN MD Jun 15, 2023 16:23
--- NOTE | 2023-06-15 16:28 | Tele-ICU Progress Note ---
Subjective Date Seen by a Provider: Jun 15, 2023 Time Seen by a Provider: 16:27 Subjective/Events-last exam (Tele-ICU Physician , Progress Note ) Service provided via interactive audio and video telecommunications [employer] s te to a patient admitted to ICU bed in [facility]. Patient is seen today due to persistent need of ICU care Available chart/ vitals / labs / Images reviewed Video assessment done using teleICU camera, rest of exam as per RN She is a 53-year-old female with past medical history of for coronary artery disease status post two-vessel bypass surgery presented to the emergency room with a complaint of fall left anterior chest and left shoulder pain radiating to the jaw. She has some shortness of breath. EKG revealed T wave inversions in the lateral leads. Troponin is however within normal limit. She is admitted to intensive care unit for further management. Cardiology was consulted and she is now started on IV nitroglycerin aspirin and Brilinta and tentatively scheduled for coronary angiogram on 06/16/2023. At this time patient is awake alert and states that there is some relief of chest pain but not completely. She has a history of COPD, hypertension and hyperlipidemia. A telemetry ICU consult was not requested on this patient but I am seeing this patient per protocol Impression 1. Chest pain most likely due to acute coronary syndrome. 2. Hypertension currently stable 3. Hyperlipidemia 4. History of coronary artery disease status post two-vessel bypass surgery. 5. Moderate obesity. 6. History of COPD. Recommendations 1. Management of ACS per cardiology 2. Tentatively scheduled for coronary angiogram on 06/16/2023. 3. Lovenox per cardiology. Coordination of care with primary care physician and bedside consultants. I am remotely monitoring this patient from Tele icu station in [place]. I am unable to do the bedside exam, and history/physical and pertinent information is taken from other notes in the computer and bedside staff. Certain portions of this document may have been dictated utilizing voice recognition technology such as [employer]. Inherent to this technology, typographical and grammatical errors may exist. As much as I am diligent to identify and correct to these mistakes, some errors may remain in the document. Critical care time devoted to this patient today is approximately is 20 minutes-- Sepsis Event Evaluation Height, Weight, BMI Height: '" Weight: lbs. oz. kg; 36.60 BMI Method: Exam Exam Patient acknowledged, consented, and participated in this virtual visit which was conducted using real time audio/video Vital Signs Date Time Temp Pulse Resp B/P (MAP) Pulse Ox O2 Delivery O2 Flow Rate FiO2 06/15/23 16:00 60 17 119/103 (109) 97 Room Air 06/15/23 15:49 96 Room Air 0.00 06/15/23 15:49 36.6 59 96 21 06/15/23 15:49 77 126/78 06/15/23 15:00 62 11 141/86 (108) 97 Room Air 06/15/23 14:00 59 23 170/93 (112) 98 Room Air 06/15/23 13:20 58 06/15/23 12:15 36.6 58 14 160/89 96 Room Air 06/15/23 10:47 36.6 59 14 154/71 (98) 96 Room Air Height & Weight Height: '" Weight: lbs. oz. kg; 36.60 BMI Method: General Appearance: WD/WN, Mild Distress (appears to be in pain) HEENT: Normal ENT Inspection, Pharynx Normal Neck: Full Range of Motion, Normal Inspection, Non Tender, Supple Respiratory: Chest Non Tender, Lungs Clear, Normal Breath Sounds, No Accessory Muscle Use, No Respiratory Distress Cardiovascular: Regular Rate, Rhythm, No Murmur, Normal Peripheral Pulses Capillary Refill: Less Than 3 Seconds Extremity: Normal Capillary Refill, Normal Inspection, No Pedal Edema Neurologic/Psychiatric: Alert, Oriented x3 Skin: Normal Color, Warm/Dry Results Lab Laboratory Tests 06/15/23 10:55 Assessment/Plan Assessment/Plan as above Critical Care: Critically Ill Patient Time spent with patient (mins): 20 JUWAN COLEMAN MD Jun 15, 2023 16:28
[2023-06-15] MEDS ORDERED: RT-ALBUTEROL SULF 2.5 MG/3 ML PRE-MIX VIAL INH PRN (17:00)
[2023-06-15] MEDS: oxyCODONE/ACETAMINOPHEN 5/325MG TABLET PO SCH ×3 (17:17→20:48)
[2023-06-15] MEDS: TICAGRELOR 90 MG TABLET (BRILINTA) PO SCH (20:18)
[2023-06-15] MEDS: RT-ALBUTEROL SULF 2.5 MG/3 ML PRE-MIX VIAL INH SCH (21:35)
[2023-06-15] MEDS ORDERED: ENOXAPARIN 100 MG/1 ML SYRINGE SC SCH (23:45)
[2023-06-16] VITALS (11 sets, daily range): BP systolic 103–140; BP diastolic 50–76
[2023-06-16] MEDS: IBUPROFEN 800 MG TABLET PO PRN (03:29)
[2023-06-16 06:12] LABS: BASOPHILS % (AUTO) 0 % (0-10); EOSINOPHILS % (AUTO) 1 % (0-10); HEMATOCRIT 36 % (35-52); HEMOGLOBIN 12.5 g/dL (11.5-16.0); LYMPHOCYTES # (AUTO) 1.2 10^3/uL (1.0-4.0); LYMPHOCYTES % (AUTO) 25 % (12-44); MEAN CORPUSCULAR HEMOGLOBIN 30 pg (25-34); MEAN CORPUSCULAR HGB CONC 35 g/dL (32-36); MEAN CORPUSCULAR VOLUME 87 fL (80-99); MEAN PLATELET VOLUME 9.9 fL (9.0-12.2); MONOCYTES # (AUTO) 0.5 10^3/uL (0.0-1.0); MONOCYTES % (AUTO) 11 % (0-12); NEUTROPHILS % (AUTO) 63 % (42-75); PLATELET COUNT 141 10^3/uL (130-400); WHITE BLOOD COUNT 4.8 10^3/uL (4.3-11.0)
[2023-06-16 06:29] LABS: CALCIUM 8.2 MG/DL (8.5-10.1); CREATININE SERUM 0.79 MG/DL (0.60-1.30); MAGNESIUM 1.7 MG/DL (1.6-2.4); POTASSIUM 4.1 MMOL/L (3.6-5.0)
[2023-06-16] MEDS: RT-ALBUTEROL SULF 2.5 MG/3 ML PRE-MIX VIAL INH SCH ×2 (07:26→07:28)
[2023-06-16 07:30] LABS: TRIGLYCERIDES 342 MG/DL (<150); VLDL CHOLESTEROL 68 MG/DL (5-40)
[2023-06-16 07:34] LABS: CHOLESTEROL 156 MG/DL (< 200)
[2023-06-16 07:35] LABS: HDL CHOLESTEROL 25 MG/DL (40-60)
--- NOTE | 2023-06-16 08:43 | Cardiology Progress Note ---
Subjective Date Seen by Provider: Jun 16, 2023 Time Seen by Provider: 08:41 Subjective/Events-last exam Patient was seen at bedside, laying down comfortably, no active chest pain Nitroglycerin drip was stopped Patient is anxious to go home Review of Systems General: No Chills, No Night Sweats, No Fatigue, No Malaise, No Appetite, No Other HEENT: No Head Aches, No Visual Changes, No Eye Pain, No Ear Pain, No Dysphasia, No Sinus Congestion, No Post Nasal Drip, No Sore Throat, No Other Pulmonary: No Dyspnea, No Cough, No Pleuritic Chest Pain, No Other Cardiovascular: No: Chest Pain, Palpitations, Orthopnea, Paroxysmal Noc. Dyspnea, Edema, Lt Headedness, Other Objective-Cardiology Exam Last Set of Vital Signs Vital Signs 06/15/23 06/16/23 06/16/23 15:49 08:45 09:59 Pulse 60 Resp 16 B/P (MAP) 140/70 (93) Pulse Ox 98 O2 Delivery Room Air O2 Flow Rate 0.00 FiO2 21 I&O Intake and Output 06/16/23 00:00 Intake Total 1600 ml Output Total 250 ml Balance 1350 ml Intake Oral 1600 ml Output Urine Total 250 ml # Voids 2 Daily Weight Change No General: Alert, Oriented X3, Cooperative HEENT: Atraumatic, PERRLA Neck: Supple, No JVD, No Thyromegaly Lungs: Clear to Auscultation, Normal Air Movement Heart: Regular Rate, Normal S1, Normal S2, No Murmurs Abdomen: Normal Bowel Sounds, Soft, No Tenderness, No Hepatosplenomegaly, No Masses Extremities: No Clubbing, No Cyanosis, No Edema, Normal Pulses, No Tenderness/Swelling Skin: No Rashes, No Breakdown, No Significant Lesion Neuro: Normal Gait, Normal Speech, Strength at 5/5 X4 Ext, Normal Tone, Sensat ion Intact Psych/Mental Status: Mental Status NL, Mood NL Results Lab Laboratory Tests 06/16/23 05:42 A/P-Cardiology Admission Diagnosis Chest pain Coronary artery disease Hypertension Hyperlipidemia Assessment/Plan Chest pain nonspecific etiology, atypical in presentation Feeling better no active chest pain Cardiac enzymes are negative EKG has nondiagnostic changes I am planning to proceed with Lexiscan Myoview stress test today Coronary artery disease, status post CABG x2 done by Dr. Deshpande in [address] Ghosh in [place] History of pericarditis. No sign of pericarditis at this point Hypertension, planning to restart home medication and monitor blood pressure Hyperlipidemia, monitor lipids History of seizure disorder, patient is anxious about missing her Dilantin We will restart Dilantin now BMI is 36, we discussed weight loss Addendum on June 16, 2023 at 12:39 PM I spoke to Dr. Ghosh regarding the patient, patient had a cardiac catheterization done by Dr. Chavez in 2021, had a patent stent in the right coronary artery, small nondominant circumflex artery and occluded LAD. The BELCHER to the LAD did not mature so it is atretic and the vein graft to diagonal artery is occluded. She has been treated medically and the ischemia is in the anterior wall in the LAD territory. We will continue with medical therapy Okay for discharge and follow-up with Dr. Ghosh as an outpatient PHIL GONZALEZ MD Jun 16, 2023 08:43
[2023-06-16] MEDS ORDERED: PHEN100C4 PO (08:44)
[2023-06-16] MEDS ORDERED: ATEN25TA PO (08:44)
[2023-06-16] MEDS ORDERED: PHEN50TA PO (08:44)
[2023-06-16] MEDS: TICAGRELOR 90 MG TABLET (BRILINTA) PO SCH (08:53)
[2023-06-16] MEDS ORDERED: FLUT1DIS26 IH (09:00)
[2023-06-16] MEDS ORDERED: PHENYTOIN EXT RELEASE 100 MG CAPSULE PO SCH ×2 (09:00→21:00)
[2023-06-16] MEDS ORDERED: OMEP10SU2 PO (09:00)
[2023-06-16] MEDS ORDERED: REGADENOSON 0.4 MG/5 ML SYR IV ONE ×2 (09:48→10:15)
--- NOTE | 2023-06-16 09:53 | Short Stay Summary-Hospitalist ---
History of Present Illness HPI/Chief Complaint CC: Chest pain HPI: This is a 53yoF of [facility] who presented to the ER with anginal type symptoms. Patient remained stable during course. Home meds restarted. EST performed revealing no reversible ischemia so she was DC on Ranexa 1000mg PO BID. Source: patient Exam Limitations: no limitations Date Seen 06/16/23 Time Seen by a Provider: 11:00 Attending Physician Hero Lester MD PCP Admitting Physician: Dickson Talavera MD Attending Physician: Annemarie Rubio DO Referring Physician Date of Admission Jun 15, 2023 at 13:00 Home Medications & Allergies Home Medications Reviewed patient Home Medication Reconciliation performed by pharmacy medication reconciliations respiratory support technician and/or nursing. Patients Allergies have been reviewed. Allergies Allergies Coded Allergies butorphanol (Verified Allergy, Unknown, 08/16/19) cyclobenzaprine (Verified Allergy, Unknown, 08/16/19) levofloxacin (Verified Allergy, Unknown, 08/16/19) meperidine (Verified Allergy, Unknown, 08/16/19) metoclopramide (Verified Allergy, Unknown, 08/16/19) morphine (Verified Allergy, Unknown, 08/16/19) prasugrel (Verified Allergy, Unknown, 08/16/19) tramadol (Verified Allergy, Unknown, 08/16/19) Past Nxjxysi-[id number]-[id number] Hx Patient Social History Marrital Status: single Employed/Student: unemployed Tobacco Use?: No Smoking Status: Former Smoker Smokeless Tobacco Frequency: Never a User Use of E-Cig and/or Vaping dev: No Substance use?: No Alcohol Use?: Yes Alcohol type: Hard Liquor Alcohol Frequency: Rarely Pt feels they are or have been: No Immunizations Up To Date First/Initial COVID19 Vaccinat: Denies Tetanus Booster (TDap): More Than 5 Years Seasonal Allergies Seasonal Allergies: Yes Current Status status: No status: No Advance Directives: No Primary Language: Serbian Preferred Spoken Language: Serbian Sensory deficits: Vision impairment Implanted or Applied Medical D: Orthopedic hardware, Stents Past Medical History Surgeries: Coronary Stent, Gallbladder, Hysterectomy Asthma Coronary Artery Disease, High Cholesterol, Hypertension Seizure Disorder [employer]ICE History: Hysterectomy Blood Disorders: No Family Medical History No Pertinent Family Hx Review of Systems Constitutional: see HPI Cardiovascular: chest pain Physical Exam Physical Exam Vital Signs Vital Signs - First Documented 06/15/23 06/15/23 10:47 15:49 Temp 36.6 Pulse 59 Resp 14 B/P (MAP) 154/71 (98) Pulse Ox 96 O2 Delivery Room Air O2 Flow Rate 0.00 FiO2 21 Capillary Refill : Less Than 3 Seconds Height, Weight, BMI Height: '" Weight: lbs. oz. kg; 36.60 BMI Method: General Appearance: No Apparent Distress, WD/WN, Anxious HEENT: Normal ENT Inspection, Pharynx Normal Neck: Full Range of Motion, Normal Inspection, Non Tender, Supple Respiratory: Chest Non Tender, Lungs Clear, Normal Breath Sounds, No Accessory Muscle Use, No Respiratory Distress Cardiovascular: Regular Rate, Rhythm, No Murmur, Normal Peripheral Pulses Gastrointestinal: Normal Bowel Sounds, No Organomegaly, Non Tender, Soft Extremity: Normal Capillary Refill, Normal Inspection, No Pedal Edema Neurologic/Psychiatric: Alert, Oriented x3 Skin: Normal Color, Warm/Dry Results Results/Procedures Labs Laboratory Tests 06/15/23 10:55 06/16/23 05:42 Patient resulted labs reviewed. Short Stay Diagnosis Discharge Diagnosis-Short Stay Admission Diagnosis Chest pain Known CAD Final Discharge Diagnosis Chest pain due to chronic angina Conclusion Plan [place] ANNEMARIE Amaya DO Jun 16, 2023 09:53
--- NOTE | 2023-06-16 11:18 | Cardiology Stress Test Report ---
Stress Test Report Date of Procedure/Referring: Date of Procedure: Jun 16, 2023 PCP Hero Lester MD Admitting Physician Admitting Physician: Dickson Talavera MD Attending Physician: Annemarie Rubio DO Baseline Heart Rate: 60 Baseline Blood Pressure: Blood Pressure Systolic: 140 Blood Pressure Diastolic: 70 Baseline Vitals Vital Signs Date Time Temp Pulse Resp B/P (MAP) Pulse Ox O2 Delivery O2 Flow Rate FiO2 06/15/23 10:47 36.6 59 14 154/71 (98) 96 Room Air 06/15/23 15:49 21 06/15/23 15:49 0.00 Baseline EKG: Baseline EKG: NSR Summary After explaining the procedure to the patient, she signed a consent and then brought to the stress nuclear laboratory. Patient received 0.4 mg Lexiscan for stress test, ECG, heart rate and blood pressure were monitored continuously. Resting and stress dose of radio tracer were injected, imaging was acquired and reviewed in short axis, horizontal long axis and vertical long axis views. TID: 1.22 SSS: 11 SDS: 11 EF: 69 Patient tolerated Lexiscan well Reversible ischemia involving the anterior wall and anterior apical segment with breast attenuation affecting the quality of the images Transient ischemic dilatation 1.22 Normal left ventricular size, EF 69% PHIL GONZALEZ MD Jun 16, 2023 11:18
[2023-06-16] MEDS ORDERED: RANO500T6 PO ×3 (12:03→12:24)
[2023-06-16] MEDS ORDERED: LIDOCAINE 1% INJ 20 ML VIAL ONE (13:44)
[2023-06-16] MEDS ORDERED: HEParin (CATH LAB) 2,000 ML IV ONE (13:45)
== END 2023-06-16 13:00 | disposition home or self-care (01) | DRG 303 ==
LOC: EDUNIT# 10:47 → ER FS 10:48 → CSD 13:00 → ICU 15:23
PROVIDERS: ADMIT Internal Medicine; ATTEND Internal Medicine
DX: I25.110 Atherosclerotic heart disease of native coronary artery with unstable angina pectoris (principal); J45.909 Unspecified asthma, uncomplicated; G40.909 Epilepsy, unspecified, not intractable, without status epilepticus; E78.00 Pure hypercholesterolemia, unspecified; I10 Essential (primary) hypertension; Z87.891 Personal history of nicotine dependence; Z95.1 Presence of aortocoronary bypass graft; Z95.5 Presence of coronary angioplasty implant and graft; E66.8 Other obesity; J44.9 Chronic obstructive pulmonary disease, unspecified; I25.2 Old myocardial infarction; K21.9 Gastro-esophageal reflux disease without esophagitis; Z68.36 Body mass index [BMI] 36.0-36.9, adult
CPT/HCPCS: 36415; 71045; 78452; 80048; 80053; 80061; 83735; 84484; 85025; 93005; 93017; 93041; 94640; G0378